=== PATIENT | male | born 1935 | race Caucasian/White ===

== ENCOUNTER 2023-08-03 14:37 | Outpatient (CLI) | payer MEDICARE, SELFPAY ==
[2023-08-03 15:01] LABS: Basophils Absolute Auto 0.1 K/mm3 (0.0-0.1); Basophils Percent Auto 0.5 % (0.2-1.2); Eosinophils Absolute Auto 0.3 K/mm3 (0-0.3); Eosinophils Percent Auto 1.6 % (0-4.4); Hematocrit 40.6 % (42.0-52.0); Hemoglobin 13.9 g/dL (14.0-18.0); Immature Granulocyte Absolute 0.32 K/mm3 (0.00-0.031); Immature Granulocyte Percent A 1.6 % (0-0.5); Lymphocytes Absolute Auto 1.34 K/mm3 (0.9-3.2); Lymphocytes Percent Auto 6.8 % (18.3-44.2); Mean Corpuscular HGB Conc 34.2 g/dl (32-36); Mean Corpuscular Hemoglobin 31.4 pg (26-34); Mean Corpuscular Volume 91.9 fl (80-100); Mean Platelet Volume 9.6 fl (7.4-10.4); Monocytes Absolute Auto 0.9 K/mm3 (0.1-0.6); Monocytes Percent Auto 4.7 % (2.6-8.5); Neutrophils Absolute Auto 16.6 K/mm3 (1.3-6.7); Neutrophils Percent Auto 84.8 % (45.5-73.1); Platelet Count Result 358 k/mm3 (150-375); Red Blood Count 4.42 M/mm3 (4.6-6.20); White Blood Count 19.6 K/mm3 (4.5-10.0)
[2023-08-03 15:59] LABS: Free T4 Free Thyroxine 1.84 ng/mL (0.78-2.19)
[2023-08-03 18:07] LABS: Alanine Aminotransferase 25 U/L (6-50); Albumin Level 3.2 g/dL (3.5-5.1); Alkaline Phosphatase 74 U/L (38-126); Anion Gap 7 mmol/L (4-12); Aspartate Amino Transferase 30 U/L (17-59); Bilirubin,Total 0.6 mg/dL (0.2-1.3); Blood Urea Nitrogen 39 mg/dL (9-20); Calcium 8.4 mg/dL (8.4-10.2); Carbon Dioxide 23 mmol/L (22-30); Chloride 103 mmol/L (98-107); Estimated Glomerular Filt Rate 57; Glucose 119 mg/dL (65-110); Potassium 4.5 mmol/L (3.4-5.0); Sodium 133 mmol/L (137-145)
== END 2023-08-03 14:38 | disposition home or self-care (01) ==
LOC: ANHLAB 14:40
PROVIDERS: PCP Physician Assistant; Visit Provider Internal Medicine
DX: E03.9 Hypothyroidism, unspecified (principal); R53.1 Weakness; I10 Essential (primary) hypertension; R73.9 Hyperglycemia, unspecified
CPT/HCPCS: 36415; 80053; 84439; 84443; 85025

== ENCOUNTER 2023-08-04 14:00 | Outpatient (CLI) | payer MEDICARE, SELFPAY ==
--- NOTE | ~2023-08-04 | XR_ITS ---
EXAMINATION: XR chest 2V DATE: 08/04/2023 14:30 INDICATION: Leukocytosis TECHNIQUE: PA and lateral views of the chest were obtained. COMPARISON: None FINDINGS: Right apical pleural-parenchymal scarring. Left lower lobar airspace opacities suspicious for pneumon ia. No pleural effusion or pneumothorax. The cardiomediastinal silhouette is normal. Moderate osteoar thritis at the bilateral glenoid humeral and acromioclavicular joints. IMPRESSION: 1. Left lower lobe pneumonia. Reviewed, dictated and finalized at location A.
[2023-08-04 15:20] LABS: Appearance Urine Clear (Clear); Bacteria Urine None Seen /hpf; Bilirubin Urine Negative (Negative); Blood Urine Negative (Negative); Color Urine Dark Yellow (Yellow); Glucose Urine UA Negative (Negative); Ketones Urine 1+ mg/dL (Negative); Leukocyte Esterase Ur Negative LEU/UL (Negative); Nitrate Urine Negative (Negative); Protein Urine 1+ mg/dL (Negative); RBC Urine 0-2 /hpf (0-2); Squamous Epithelial Cell Urine None Seen /hpf (Few); WBC Urine 0-5 /hpf (0-3); pH Urine 5.5 (5.0-9.0)
[2023-08-04 15:34] LABS: Specific Grav Ur 1.031 (1.001-1.035)
[2023-08-04 15:35] LABS: Add Urine Microscopic? YES
== END 2023-08-04 14:01 | disposition home or self-care (01) ==
PROVIDERS: PCP Internal Medicine; Visit Provider Internal Medicine
DX: D72.829 Elevated white blood cell count, unspecified (principal); J18.9 Pneumonia, unspecified organism
CPT/HCPCS: 71046; 81001

== ENCOUNTER 2023-08-05 12:08 | Inpatient (IN) | payer MEDICARE, SELFPAY ==
[2023-08-05] VITALS (18 sets, daily range): BP systolic 96–116; BP diastolic 46–67; PULSE 80–93; RESP 16–27; TEMP 36.3–37.1; O2SAT 95–100
--- NOTE | ~2023-08-05 | XR_ITS ---
EXAMINATION: XR chest 1V portable DATE: 08/05/2023 13:03 INDICATION: Left lower lobe pneumonia. TECHNIQUE: A single frontal view of the chest was obtained. COMPARISON: Chest 2 views 08/04/2023 FINDINGS: There are mild airspace opacities in the lower lung zones. No pleural effusion or pneumotho rax. The heart size is normal. IMPRESSION: 1. Stable mild airspace opacities in the lower lung zones, consistent with atelectasis versus pneumon ia. Reviewed, dictated and finalized at location A. IMPRESSION: 1. Stable mild airspace opacities in the lower lung zones, consistent with atel ectasis versus pneumonia.
--- NOTE | ~2023-08-05 | CT_ITS ---
EXAMINATION: CT chest abdomen pelvis w con DATE: 08/09/2023 14:23 INDICATION: Leukocytosis. Sepsis. TECHNIQUE: Computed tomography (CT) of the chest, abdomen, and pelvis was performed with 100 mL Omnip aque 350 intravenous contrast. Automated exposure control and iterative reconstruction technique were employed. The dose-length product was 1191.93 mGy-cm. COMPARISON: None FINDINGS: CHEST CT: The lungs demonstrate mild atelectasis. There are airspace opacities in the dependent lower lobes. Th ere is mild bronchiectasis in the inferior lungs. There is septal thickening in the peripheral lungs. No honeycombing. A calcified left lung nodule and calcified left hilar mediastinal lymph nodes are c onsistent with old granulomatous disease. There are trace right and small left pleural effusions. The heart size is normal. No pericardial effusion.- There are bridging endplate osteophytes at multiple levels in the spine, consistent with diffuse idiopathic skeletal hyperostosis (DISH). ABDOMEN/PELVIS CT: There are cysts in the liver measuring up to 10 mm. Calcifications in the spleen are consistent with old granulomatous disease. The gallbladder is normal in size. The pancreas and adrenal glands are nor mal. There are cysts in the kidneys measuring up to 7 mm on the left. There is calcified atherosclero sis of the aorta and many of the other arteries. Stool distends the rectum. There is diverticulosis o f the colon without evidence of diverticulitis. The appendix is normal. There are no pathologically e nlarged lymph nodes. There is trace pelvic ascites. There is an umbilical hernia containing fat. Ther e is mild lumbar spondylosis. IMPRESSION: 1. Airspace opacities in the dependent lower lobes, consistent with atelectasis versus pneumonia. 2. Mild chronic interstitial lung disease. 3. Small left pleural effusion. Reviewed, dictated and finalized at location A.
--- NOTE | ~2023-08-05 | CT_ITS ---
EXAMINATION: CT brain wo con DATE: 08/07/2023 18:22 INDICATION: Generalized weakness. TECHNIQUE: Computed tomography (CT) of the head was performed without intravenous contrast. The mA wa s adjusted according to patient size. Iterative reconstruction technique was employed. The dose-lengt h product was 605.33 mGy-cm. COMPARISON: None FINDINGS: There is no intracranial hemorrhage, acute infarction, or abnormal intracranial mass lesion . There are scattered areas of low attenuation in the cerebral white matter, which is within normal l imits for the patient's age. The ventricles are normal in size. There is mucosal thickening in the p aranasal sinuses. The mastoid air cells are normal. IMPRESSION: 1. Normal aging brain. Reviewed, dictated and finalized at location E. IMPRESSION: 1. Normal aging brain.
--- NOTE | ~2023-08-05 | XR_ITS ---
MODIFIED ESOPHAGRAM HISTORY: Aspiration TECHNIQUE: Modified barium esophagram was performed on 08/07/2023. I administered fluoroscopy and perf ormed the exam with speech pathologist. Patient was seated for lateral fluoroscopic imaging for roverto stion of thin liquids, pudding, solids and quantified amounts, followed by thin liquids in uncontroll ed amounts. This was recorded on tape. A single fluoroscopic spot image was also recorded. The DAP fo r this procedure was 2.131 Gycm2. The amount of fluoroscopy time used during this procedure was 3.3 m inutes. FINDINGS: Oral stage: Reduced lingual movement with piecemeal deglutination. Pharyngeal stage: There is vallecular and piriform sinus residue. Trace laryngeal penetration without aspiration. Cervical/esophageal stage: Adequate function. IMPRESSION: Mild oropharyngeal dysphagia. Please correlate with speech pathologist findings and spec [facility] feeding recommendations. Reviewed, dictated and finalized at location A. IMPRESSION: Mild oropharyngeal dysphagia. Please correlate with speech patholo gist findings and specific feeding recommendations.
--- NOTE | 2023-08-05 12:29 | ECG_ITS ---
Test Date: 2023-08-05 12:17:43 Measurements Intervals [place] Rate: 92 P: 56 NC: 145 QRS: -8 QRSD: 85 T: 40 QT: 336 QTc: 416 Interpretive Statements SINUS RHYTHM NORMAL ELECTROCARDIOGRAM No previous ECG available for comparison Electronically Signed On 08-05-2023 15:26:23 CDT by Bull Younger M.D.
--- NOTE | 2023-08-05 12:31 | ED.GENADULT ---
HPI - General Adult General Chief complaint: Weakness Stated complaint: weakness, pneumonia Time Seen by Provider: 08/05/23 12:21 Source: patient Mode of arrival: ambulatory Limitations: no limitations History of Present Illness HPI narrative: This is an 88-year-old male with PMH of HTN, hypothyroid who presents to the ED for chief complaint of generalized weakness and fatigue onset times 2-3 weeks. Patient was seen by primary doctor this week and had outpatient labs and x-rays that showed pneumonia of left lower lobe. Patient reports that he is having trouble doing his normal tasks due to his fatigue. He had a fall few days ago and was on the ground for several hours. Patient lives at home. Patient states that he was started on levothyroxine about a week ago and has noticed some difference with that but still feels extremely tired. Denies fevers, chills, cough, shortness of breath, chest pain, abdominal pain, nausea, vomiting, urinary symptoms, back pain. Denies syncope. Patient's son is here and does not feel that the patient is able to take care of himself at home. Son also swellings that family is taking care of patient's who has Alzheimer's. Related Data Home Medications Medication Instructions Recorded Confirmed levothyroxine 50 mcg tablet 50 mcg PO DAILY 08/05/23 08/05/23 Allergies Allergy/AdvReac Type Severity Reaction Status Date / Time No Known Allergies Allergy Mild Verified 08/05/23 16:38 Review of Systems Review of Systems: All systems as dictated in [facility] Past Medical History Medical History Hypothyroidism ?? Family History Family History Other Cerebrovascular accident Family history of rheumatoid arthritis Hypertension Social History Social History Smoking status: Never smoker Second hand tobacco smoke exposure: No Alcohol intake: never Do You Feel Safe in your Home?: No Lack of Transportation: No Lack of Food: Never True Current Housing: I Have Housing Concerned About Future Housing: No Difficulty Paying Gas/Electric Bills: No Difficulty Paying for Meds: No Currently Unemployed: No Education: Master's Degree or Higher Difficulty w/ Childcare or Family Care: No Spiritual care concerns: No Exam Narrative: GENERAL: Well-appearing, well-nourished, and in no acute distress. HEAD: Normocephalic, atraumatic. EYES: PERRLA and EOMI. ENT: Nares clear, no rhinorrhea or epistaxis. Mucous membranes moist. Oropharynx without tonsillar hypertrophy exudate or other lesions. NECK: Supple. No adenopathy or masses. CHEST: No respiratory distress. Crackles in the left lower lobe. Lungs are otherwise clear. 98% room air. HEART: Regular rate and rhythm. No murmur heard. Normal peripheral pulses. ABDOMEN: Soft, nontender, nondistended, normal active bowel sounds. MSK: Normal range of motion. No edema. SKIN: Warm, dry, no rash. NEURO: Alert and oriented x4. No focal deficits. PSYCH: Normal mood and affect. Course Vital Signs Vital signs: Vital Signs Temperature 98.7 F 08/05/23 12:15 Pulse Rate 93 08/05/23 12:15 Respiratory Rate 16 08/05/23 12:15 Blood Pressure 104/61 08/05/23 12:15 Pulse Oximetry 98 08/05/23 12:15 Oxygen Delivery Room Air 08/05/23 12:15 Temperature 97.4 F L 08/05/23 16:15 Pulse Rate 92 08/05/23 16:15 Respiratory Rate 22 H 08/05/23 16:15 Blood Pressure 116/60 08/05/23 16:15 Pulse Oximetry 95 08/05/23 16:15 Oxygen Delivery Room Air 08/05/23 12:15 Medical Decision Making MDM Narrative Medical decision making narrative: This is an 88-year-old male who presents to the ED for chief complaint of weakness and fatigue for the past couple of weeks. Outpatient workup showing elevated white count and lower lobe pneumonia o
[2023-08-05] MEDS: SODIUM CHLORIDE 0.9% IV 1,000 ML 999 ML IV CONT ×2 (12:36→14:02)
[2023-08-05 13:01] LABS: Basophils Absolute Auto 0.1 K/mm3 (0.0-0.1); Basophils Percent Auto 0.6 % (0.2-1.2); Eosinophils Absolute Auto 0.4 K/mm3 (0-0.3); Eosinophils Percent Auto 1.8 % (0-4.4); Hematocrit 36.9 % (42.0-52.0); Hemoglobin 12.9 g/dL (14.0-18.0); Immature Granulocyte Absolute 0.56 K/mm3 (0.00-0.031); Immature Granulocyte Percent A 2.8 % (0-0.5); Lymphocytes Absolute Auto 1.13 K/mm3 (0.9-3.2); Lymphocytes Percent Auto 5.7 % (18.3-44.2); Mean Corpuscular Hemoglobin 31.5 pg (26-34); Monocytes Absolute Auto 0.8 K/mm3 (0.1-0.6); Monocytes Percent Auto 4.2 % (2.6-8.5); Neutrophils Absolute Auto 16.7 K/mm3 (1.3-6.7); Neutrophils Percent Auto 84.9 % (45.5-73.1); Platelet Count Result 340 k/mm3 (150-375); Red Cell Distribution Width 12.7 % (11.5-14.5); White Blood Count 19.7 K/mm3 (4.5-10.0)
[2023-08-05 13:07] LABS: Lactic Acid Reflex 2.5 mmol/L (0.7-2.0)
[2023-08-05 13:14] LABS: Alanine Aminotransferase 22 U/L (6-50); Albumin Level 2.9 g/dL (3.5-5.1); Alkaline Phosphatase 72 U/L (38-126); Anion Gap 8 mmol/L (4-12); Aspartate Amino Transferase 28 U/L (17-59); Bilirubin,Total 0.8 mg/dL (0.2-1.3); Blood Urea Nitrogen 33 mg/dL (9-20); Calcium 7.9 mg/dL (8.4-10.2); Carbon Dioxide 21 mmol/L (22-30); Chloride 96 mmol/L (98-107); Estimated CRCL calculation 53 ml/min; Estimated Glomerular Filt Rate > 60; Glucose 117 mg/dL (65-110); Potassium 4.4 mmol/L (3.4-5.0); Sodium 125 mmol/L (137-145)
[2023-08-05 13:33] LABS: Procalcitonin 0.2 ng/mL
[2023-08-05] MEDS: AZITHROMYCIN 500 MG/NS 250 ML 500 MG/250 ML BAG 250 MG IVPB (14:02)
[2023-08-05 15:54] LABS: Reflex Lactic Acid Yes or No Add Lactic
--- NOTE | 2023-08-05 16:21 | ADMGEN ---
This patient, Alonzo Orta, was admitted to 3 [facility] Surg Room 327-01. Patient/family oriented to hospital policies and general routines including ID bracelet, bed and alarms, visiting hours, pain management, procedures, bathroom and other care routines, personal items, smoking policy, room service/diet, and visiting hours. Information on how to activate the Rapid Response Team has been discussed. Patient/Family are encouraged to report perceived risks to care and to ask questions if they do not understand what they are told or what they should do.
[2023-08-05] MEDS: SODIUM CHLORIDE 0.9% IV 1,000 ML 75 ML IV CONT (18:32)
--- NOTE | 2023-08-05 18:40 | PM.IMHP ---
H&P: HPI History of Present Illness Date/Time: 08/05/23 18:40 Chief Complaint: Dehydration, Pneumonia Narrative: 88 y/o M presents here with dehydration and pneumonia with PMH of hypothyroidism, HTN, skin cancer (s/p excision), and shingles. The patient presents here from home? for further evaluation of dehydration and pneumonia. Patient was seen by his PCP for generalized weakness, fatigue, and decreased appetite. Fatigue and generalized weakness have been ongoing for the past 2-3 weeks and he developed lack of appetite in the past week. CXR on 08/03 showed left lower lobe pneumonia. He was prescribed Augmentin 500-125 x 10 days and a Z-Pierre which was filled today, 08/04. Does not believe he has taken any doses. However due to the severity of the fatigue and interference with his ADLs, he was sent here for further evaluation by his PCP. Also reported fatigue at his PCP visit on 07/29/2023, started on Synthroid 50 mcg daily. Since initiation he reports some improvement but remains fatigued most days. He currently lives at home with his who has Alzheimer's, son at the bedside in the ED reported concerns about patient's ability to take care of himself at home. Patient believes he could continue to stay home if he had home health to help him. Initial VS at presentation: 98.7? F, HR 93, R 16, 104/61, and 98% on RA. ED workup showed: WBC 19.7, hemoglobin 12.9, sodium 125, creatinine 0.9 and normal GFR, CRP 13. CXR done today showed stable miles airspace opacities in the lower lung zones consistent with atelectasis versus pneumonia. Review of Systems Review of Systems: All systems reviewed & are unremarkable except as noted in HPI and below PMFSH Past Medical History Medical History (Updated 08/05/23 @ 23:11 by Yvrose Orosco APRN) Herpes zoster Hx of skin malignancy Hyperlipidemia, unspecified Hypertension Hypothyroidism Low vitamin D level Surgical History Surgical History (Updated 08/05/23 @ 23:04 by Yvrose Orosco APRN) History of rotator cuff surgery Family History Family History Other Cerebrovascular accident Family history of rheumatoid arthritis Hypertension Social History Social History Smoking status: Never smoker Second hand tobacco smoke exposure: No Alcohol intake: never Do You Feel Safe in your Home?: No Lack of Transportation: No Lack of Food: Never True Current Housing: I Have Housing Concerned About Future Housing: No Difficulty Paying Gas/Electric Bills: No Difficulty Paying for Meds: No Currently Unemployed: No Education: Master's Degree or Higher Difficulty w/ Childcare or Family Care: No Spiritual care concerns: No Meds Home Medications and Allergies Home Medications Medication Instructions Recorded Confirmed Type ergocalciferol (vitamin D2) 1,250 See Rx Instructions .Route 03/31/23 08/05/23 Rx mcg (50,000 unit) capsule .COMPLEX #3 caps lisinopril 5 mg tablet 5 mg PO DAILY #90 tabs 07/29/23 08/05/23 Rx amoxicillin 500 mg-potassium 1 tablet PO Q12H #20 tabs 08/05/23 08/05/23 Rx clavulanate 125 mg tablet (Augmentin) azithromycin 250 mg tablet See Rx Instructions PO .COMPLEX #6 08/05/23 08/05/23 Rx (Zithromax Z-Pierre) tabs levothyroxine 50 mcg tablet 50 mcg PO DAILY 08/05/23 08/05/23 History Allergies Allergy/AdvReac Type Severity Reaction Status Date / Time No Known Allergies Allergy Mild Verified 08/05/23 16:38 Vital Signs Vital Signs - 24 hr 08/05/23 12:15 08/05/23 12:18 08/05/23 12:30 Temperature 98.7 F Pulse Rate 93 90 89 Respiratory Rate 16 20 17 Blood Pressure 104/61 104/61 101/67 Pulse Oximetry 98 98 99 Oxygen Delivery Room Air 08/05/23 12:31 08/05/23 12:45 08/05/23 12:46 Temperature Pulse Rate 89 85 83 Respiratory Rate 20 20 19 Blood Pressure 100/60 Pulse Oximetry 99 98 98
[2023-08-05 19:37] LABS: Anion Gap 6 mmol/L (4-12); Blood Urea Nitrogen 29 mg/dL (9-20); Calcium 7.6 mg/dL (8.4-10.2); Carbon Dioxide 23 mmol/L (22-30); Chloride 102 mmol/L (98-107); Estimated CRCL calculation 53 ml/min; Estimated Glomerular Filt Rate > 60; Glucose 90 mg/dL (65-110); Potassium 4.5 mmol/L (3.4-5.0); Sodium 131 mmol/L (137-145)
[2023-08-05] MEDS: ACETAMINOPHEN 325 MG TABLET 650 MG PO (20:55)
--- NOTE | 2023-08-05 22:36 | PC.NURSE ---
I have read and reviewed Nannette Mckeon's charting and agree with her assessments of the pts and her documentation.
[2023-08-05 22:41] LABS: Appearance Urine Clear (Clear); Bacteria Urine None Seen /hpf; Bilirubin Urine Negative (Negative); Blood Urine Negative (Negative); Color Urine Yellow (Yellow); Glucose Urine UA Negative (Negative); Ketones Urine Negative (Negative); Leukocyte Esterase Ur 1+ LEU/UL (Negative); Nitrate Urine Negative (Negative); Non Pathogenic Casts 0-2; Protein Urine Negative (Negative); RBC Urine 0-2 /hpf (0-2); Specific Grav Ur 1.015 (1.001-1.035); Squamous Epithelial Cell Urine None Seen /hpf (Few); WBC Urine 21-50 /hpf (0-3); pH Urine 5.5 (5.0-9.0)
[2023-08-05 22:46] LABS: Creatinine Urine 62.1 mg/dL
[2023-08-05 22:49] LABS: Creatinine Urine 62.7 mg/dL; Total Protein Urine Random 10 mg/dL; Ur Ttl Prot Creatinine Ratio 0.16 mg/mg (0-0.20)
[2023-08-05 22:51] LABS: Sodium Urine Random 74 meq/L
[2023-08-05 23:05] LABS: Add Urine Microscopic? YES
[2023-08-05 23:29] LABS: Anion Gap 2 mmol/L (4-12); Blood Urea Nitrogen 24 mg/dL (9-20); Calcium 7.2 mg/dL (8.4-10.2); Carbon Dioxide 24 mmol/L (22-30); Chloride 103 mmol/L (98-107); Estimated CRCL calculation 53 ml/min; Estimated Glomerular Filt Rate > 60; Glucose 95 mg/dL (65-110); Potassium 3.9 mmol/L (3.4-5.0); Sodium 129 mmol/L (137-145)
[2023-08-06 03:28] LABS: Anion Gap 3 mmol/L (4-12); Blood Urea Nitrogen 22 mg/dL (9-20); Calcium 7.4 mg/dL (8.4-10.2); Carbon Dioxide 24 mmol/L (22-30); Chloride 104 mmol/L (98-107); Estimated CRCL calculation 53 ml/min; Estimated Glomerular Filt Rate > 60; Glucose 91 mg/dL (65-110); Potassium 3.9 mmol/L (3.4-5.0); Sodium 131 mmol/L (137-145)
[2023-08-06] MEDS: LEVOTHYROXINE SODIUM 50 MCG TABLET PO (05:23)
[2023-08-06] MEDS: SODIUM CHLORIDE 0.9% IV 1,000 ML 75 ML IV CONT (05:23)
[2023-08-06 05:55] LABS: Basophils Absolute Auto 0.1 K/mm3 (0.0-0.1); Basophils Percent Auto 0.5 % (0.2-1.2); Eosinophils Absolute Auto 0.7 K/mm3 (0-0.3); Eosinophils Percent Auto 3.5 % (0-4.4); Hematocrit 37.4 % (42.0-52.0); Hemoglobin 12.4 g/dL (14.0-18.0); Immature Granulocyte Absolute 0.36 K/mm3 (0.00-0.031); Immature Granulocyte Percent A 1.9 % (0-0.5); Lymphocytes Absolute Auto 0.95 K/mm3 (0.9-3.2); Lymphocytes Percent Auto 5.1 % (18.3-44.2); Mean Corpuscular HGB Conc 33.2 g/dl (32-36); Mean Corpuscular Hemoglobin 31.1 pg (26-34); Mean Corpuscular Volume 93.7 fl (80-100); Mean Platelet Volume 9.7 fl (7.4-10.4); Monocytes Absolute Auto 0.7 K/mm3 (0.1-0.6); Neutrophils Absolute Auto 15.8 K/mm3 (1.3-6.7); Platelet Count Result 315 k/mm3 (150-375); Red Blood Count 3.99 M/mm3 (4.6-6.20); White Blood Count 18.6 K/mm3 (4.5-10.0)
[2023-08-06 06:00] VITALS: BP 100/59; PULSE 79; RESP 20; TEMP 36.5; O2SAT 97
[2023-08-06 06:04] LABS: Alanine Aminotransferase 18 U/L (6-50); Albumin Level 2.4 g/dL (3.5-5.1); Alkaline Phosphatase 62 U/L (38-126); Anion Gap 5 mmol/L (4-12); Aspartate Amino Transferase 24 U/L (17-59); Bilirubin,Total 0.6 mg/dL (0.2-1.3); Blood Urea Nitrogen 22 mg/dL (9-20); Calcium 7.4 mg/dL (8.4-10.2); Carbon Dioxide 22 mmol/L (22-30); Chloride 103 mmol/L (98-107); Estimated CRCL calculation 59 ml/min; Estimated Glomerular Filt Rate > 60; Glucose 90 mg/dL (65-110); Sodium 130 mmol/L (137-145)
[2023-08-06 08:00] VITALS: PULSE 79; RESP 20; O2SAT 97
--- NOTE | 2023-08-06 10:31 | PM.CNNEP ---
Assessment and Plan Assessment and plan (1) Hyponatremia: Code(s): E87.1 - Hypo-osmolality and hyponatremia Status: Acute Assessment and Plan: The patient has low sodium. He says he has never been told low sodium in the past. Labs from before have not shown a low-sodium except for the 1 2 days before admission at the time of the primary care visit when he had the same illness. He was dehydrated when he came into the emergency room it looks like he still little bit dried now. This could cause low sodium. He has pneumonia can also cause low sodium He had a TSH and a cortisol level both of which were okay. He is not on any medications that would cause the sodium to be low. 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 Will check SPEP, serum and urine osmolality. His sodium did improve from 125-130 with IV fluids. Will change to half normal saline so does not correct so quickly and continue to follow the sodium levels as we hydrate. (2) Pneumonia: Qualifiers: Laterality: bilateral Lung location: lower lobe of lung Pneumonia type: due to unspecified organism Qualified Code(s): J18.9 - Pneumonia, unspecified organism Code(s): J18.9 - Pneumonia, unspecified organism Status: Acute (3) Sepsis: Qualifiers: Sepsis type: sepsis due to unspecified organism Sepsis acute organ dysfunction status: without acute organ dysfunction Qualified Code(s): A41.9 - Sepsis, unspecified organism Code(s): A41.9 - Sepsis, unspecified organism Status: Acute (4) Hypertension: Qualifiers: Hypertension type: primary hypertension Qualified Code(s): I10 - Essential (primary) hypertension Code(s): I10 - Essential (primary) hypertension Status: Acute (5) Hypothyroidism: Code(s): E03.9 - Hypothyroidism, unspecified Status: Acute History of Present Illness Reason for Consult Consult date: 08/06/23 Chief Complaint Chief complaint: Pneumonia,Hyponatremia History of Present Illness Narrative: Alonzo is a very pleasant 88-year-old gentleman who has multiple medical problems including hypothyroidism, hypertension, skin cancer, low vitamin-D level, hyperlipidemia, history of shingles. The patient came in the hospital because of dehydration and pneumonia. His trouble started about 2 or 3 weeks ago when he started becoming generally weak. He had poor appetite as well. He was not eating or drinking very much. He went to see his primary care physician who got a chest x-ray and diagnosed left lower lobe pneumonia and so prescribed him Augmentin plus is Z pack. However things kept getting worse and so came to the ER. In the ER he was found to be dehydrated, he had a sodium of 125, a white count 19.7, and a chest x-ray once again showing infiltrates. He status side sepsis criteria so he received IV fluids for this. He was admitted. He was felt to be dehydrated so he was given normal saline overnight as well. Today he says he still feels weak. He does not have shortness of breath now. But when he exerts he has a little bit. He does not have much of a cough. He has no sputum. No chills or sweats at home and no fevers at home that he knows of. He does not take narcotics. He is on no antidepressants. He is on no PPI and no diuretics. He does have hypertension and takes lisinopril for this. Review of Systems Constitutional: Constitutional: Reports no additional constitutional complaints Eyes: Eyes: Reports no additional eye complaints ENT: Reports system reviewed and no additional complaints, except as documented Cardiovascular: Cardiovascular: Reports no additional cardiovascular complaints Respiratory: Respiratory: Reports no additional respiratory complaints Gastrointestinal: Gastrointestinal: Reports no additional gastrointestinal complaints Genitourinary: Genitourinary: Reports no additional
--- NOTE | 2023-08-06 11:30 | PM.IMPN ---
Progress Note: A&P Assessment and Plan (1) Sepsis: Qualifiers: Sepsis type: sepsis due to unspecified organism Sepsis acute organ dysfunction status: without acute organ dysfunction Qualified Code(s): A41.9 - Sepsis, unspecified organism Code(s): A41.9 - Sepsis, unspecified organism Status: Acute Assessment and Plan: Sepsis present on admission with tachycardia and leukocytosis. He received appropriate amount of IV fluids. PCT 0.2. WBC 19.7K. CRP 13. CXR showing bilateral LL PNA. BCx pending UA noted. UCx pending Suspected source: PNA Started on ceftriaxone and azithromycin on 08/04 WBC better. Continue IV abx. Eating okay so ebenezer stop IV fluids (2) Pneumonia: Qualifiers: Laterality: bilateral Lung location: lower lobe of lung Pneumonia type: due to unspecified organism Qualified Code(s): J18.9 - Pneumonia, unspecified organism Code(s): J18.9 - Pneumonia, unspecified organism Status: Acute Assessment and Plan: CXR 08/04/23 showing left lower lobe PNA CXR on admission (08/04) showing stable mild airspace opacities in the lower lung zones No recent antibiotic use, lives at home Started on treatment for CAP with Azithromycin and ceftriaxone on 08/04 MRSA PCR and legionella (due to current hyponatremia) Sputum culture if obtainable. Speech therapy to see Follow (3) Acute hyponatremia: Code(s): E87.1 - Hypo-osmolality and hyponatremia Status: Acute Assessment and Plan: Na 125 on admission. No prior hx of hyponatremia TSH normal. Cortisol level appropriate. Serial sodium level up to 130 now. (about 5mEq/L in a 18-hour period)? Suspect related to dehydration. Cr normal but BUN 33. Nephrology consulted. Continue Regular diet. BUN trending down with IV fluids. IV fluids per nephrology (4) Hypertension: Qualifiers: Hypertension type: primary hypertension Qualified Code(s): I10 - Essential (primary) hypertension Code(s): I10 - Essential (primary) hypertension Status: Acute Assessment and Plan: Patient's blood pressure was reviewed on 08/05 Blood pressure soft at times He is on Lisinopril 5 mg daily (recently reduced this month) at home. Hold Lisinopril. Plan Diet: Regular DVT Prophylaxis: SCDs Code Status: Full code Disp: PT/OT. Subjective Date/time seen: 08/06/23 11:30 Interval history: 88yo male with hypothyroidism, HTN and shingles here for dehydration and PNA. Complains of mid back pain. No cough. Slept okay. Eating okay. No CP. No SOB. Back pain has been present for about 1 week. He also was recently diagnosed with hypothyroidism and started on synthroid. Exam Narrative: AF 97.7 100/59 79 20 97% ra Gen - NARD lying flat in bed Chest - right base inspiratory crackles. nml RR CV - RRR S1/S2 Abd - Soft, NT/ND, Positive BS Back - mid back spinal and paraspinal tenderness to palpation. No overlying rash or erythema Ext - No pedal edema. normal SLR. Neuro - Alert and oriented x4. Nonfocal exam. Psych - Nml mood and affect Skin - Warm and dry Objective Data Vital Signs Vital Signs: Vital Signs - 24 hr 08/05/23 12:15 08/05/23 12:18 08/05/23 12:30 Temperature 98.7 F Pulse Rate 93 90 89 Respiratory Rate 16 20 17 Blood Pressure 104/61 104/61 101/67 Pulse Oximetry 98 98 99 Oxygen Delivery Room Air 08/05/23 12:31 08/05/23 12:45 08/05/23 12:46 Temperature Pulse Rate 89 85 83 Respiratory Rate 20 20 19 Blood Pressure 100/60 Pulse Oximetry 99 98 98 Oxygen Delivery 08/05/23 13:00 08/05/23 13:15 08/05/23 13:30 Temperature Pulse Rate 83 80 81 Respiratory Rate 20 20 20 Blood Pressure 105/64 111/58 L Pulse Oximetry 99 100 Oxygen Delivery 08/05/23 14:16 08/05/23 14:30 08/05/23 14:31 Temperature Pulse Rate 83 84 83 Respiratory Rate 24 H 27 H 20 Blood Pressure 99/46 L Pulse Oximetry 97 100 100 Oxygen Delivery
[2023-08-06] MEDS: SODIUM CHLORIDE 0.45% 1,000 ML 75 ML IV CONT (11:53)
[2023-08-06 13:12] LABS: Sodium 129 mmol/L (137-145)
[2023-08-06 14:00] VITALS: BP 96/52; PULSE 82; RESP 16; TEMP 36.9; O2SAT 98
[2023-08-06] MEDS: AZITHROMYCIN 500 MG/NS 250 ML 500 MG/250 ML BAG 250 MG IVPB (16:00)
[2023-08-06] MEDS: DESMOPRESSIN ACETATE 4 MCG/ML AMP 2 MCG IV PUSH (18:27)
[2023-08-06] MEDS: DEXTROSE 5% IN WATER 500 ML 250 ML IV CONT (18:33)
[2023-08-06 20:00] VITALS: PULSE 89; RESP 18; O2SAT 98
[2023-08-06 21:26] VITALS: BP 120/51; PULSE 89; RESP 18; TEMP 36.9; O2SAT 98
[2023-08-06 22:08] LABS: Hemoglobin 11.4 g/dL (14.0-18.0); Mean Corpuscular HGB Conc 34.5 g/dl (32-36); Mean Corpuscular Hemoglobin 31.2 pg (26-34); Mean Corpuscular Volume 90.4 fl (80-100); Mean Platelet Volume 9.5 fl (7.4-10.4); Platelet Count Result 282 k/mm3 (150-375); Red Blood Count 3.65 M/mm3 (4.6-6.20); White Blood Count 17.4 K/mm3 (4.5-10.0)
[2023-08-07 05:21] VITALS: BP 127/52; PULSE 94; RESP 18; TEMP 36.9; O2SAT 96
[2023-08-07] MEDS: LEVOTHYROXINE SODIUM 50 MCG TABLET PO (05:56)
[2023-08-07 05:58] LABS: Basophils Absolute Auto 0.1 K/mm3 (0.0-0.1); Basophils Percent Auto 0.5 % (0.2-1.2); Eosinophils Absolute Auto 0.3 K/mm3 (0-0.3); Eosinophils Percent Auto 1.5 % (0-4.4); Hematocrit 35.2 % (42.0-52.0); Immature Granulocyte Absolute 0.52 K/mm3 (0.00-0.031); Immature Granulocyte Percent A 2.4 % (0-0.5); Lymphocytes Absolute Auto 1.09 K/mm3 (0.9-3.2); Lymphocytes Percent Auto 5.1 % (18.3-44.2); Mean Corpuscular HGB Conc 34.1 g/dl (32-36); Mean Platelet Volume 9.8 fl (7.4-10.4); Monocytes Percent Auto 4.4 % (2.6-8.5); Neutrophils Absolute Auto 18.6 K/mm3 (1.3-6.7); Neutrophils Percent Auto 86.1 % (45.5-73.1); Platelet Count Result 291 k/mm3 (150-375); Red Blood Count 3.87 M/mm3 (4.6-6.20); White Blood Count 21.6 K/mm3 (4.5-10.0)
[2023-08-07 06:09] LABS: Anion Gap 3 mmol/L (4-12); Blood Urea Nitrogen 18 mg/dL (9-20); Calcium 7.1 mg/dL (8.4-10.2); Carbon Dioxide 23 mmol/L (22-30); Chloride 101 mmol/L (98-107); Estimated CRCL calculation 59 ml/min; Estimated Glomerular Filt Rate > 60; Glucose 113 mg/dL (65-110); Potassium 4.2 mmol/L (3.4-5.0); Sodium 127 mmol/L (137-145)
[2023-08-07 08:08] VITALS: O2SAT 96
[2023-08-07] MEDS: VANCOMYCIN 1,750 MG/NS 500 ML 1,750 MG/500 ML BAG 250 MG IVPB (09:15)
--- NOTE | 2023-08-07 10:28 | PM.PNNEP ---
Progress Note: A&P Assessment and Plan (1) Hyponatremia: Code(s): E87.1 - Hypo-osmolality and hyponatremia Status: Acute Assessment and Plan: The patient has low sodium. No history of low sodium before this month. TSH and cortisol are okay. Urine and serum osmolality are pending urine specific gravity is 1.015 and on admission was 1.031 Urine sodium 74 blood pressure on admission was somewhat soft. He looked dehydrated on admission as well. Most likely sodium was low due to prerenal factors. the pneumonia may be playing a role as well. I am not sure why the urine sodium was not low, possibly since the pneumonia may be playing a role in his hyponatremia. For this reason will continue fluid restriction. he is not drinking all that much fluid anyway. His sodium Was trending toward correcting fairly quickly so slowed down. Will treat with fluid restriction and a little bit of IV fluids since he is not eating and also there was a question of swallowing issues. (2) Pneumonia: Qualifiers: Laterality: bilateral Lung location: lower lobe of lung Pneumonia type: due to unspecified organism Qualified Code(s): J18.9 - Pneumonia, unspecified organism Code(s): J18.9 - Pneumonia, unspecified organism Status: Acute Assessment and Plan: He is on antibiotics (3) Sepsis: Qualifiers: Sepsis type: sepsis due to unspecified organism Sepsis acute organ dysfunction status: without acute organ dysfunction Qualified Code(s): A41.9 - Sepsis, unspecified organism Code(s): A41.9 - Sepsis, unspecified organism Status: Acute Assessment and Plan: on antibiotics (4) Hypertension: Qualifiers: Hypertension type: primary hypertension Qualified Code(s): I10 - Essential (primary) hypertension Code(s): I10 - Essential (primary) hypertension Status: Acute Assessment and Plan: blood pressure is doing well. His blood pressure meds are on hold right now because it was soft when he came in (5) Hypothyroidism: Code(s): E03.9 - Hypothyroidism, unspecified Status: Acute Assessment and Plan: he is on levothyroxine Subjective Date/time seen: 08/07/23 10:28 Interval history: patient is alert. Some question of swallowing. Is going to get a modified swallowing test today. He says he is very weak still. He asks the nurses to empty his water pitcher half way so that he is able to lift it. He also is too weak rise from a lying to a semi Rubio position. Not eating a whole lot. Review of Systems Cardiovascular: Cardiovascular: Reports no additional cardiovascular complaints Respiratory: Respiratory: Reports no additional respiratory complaints Gastrointestinal: Gastrointestinal: Reports no additional gastrointestinal complaints Genitourinary: Genitourinary: Reports no additional male genitourinary complaints Exam Narrative: WDWN in NAD skin no rash head ncat lungs clear cor reg no rub abd BS+ nontender and soft ext no edema. Objective Data Vital Signs Vital Signs: Vital Signs - 24 hr 08/06/23 14:00 08/06/23 21:26 08/06/23 20:00 Temperature 98.5 F 98.4 F Pulse Rate 82 89 89 Respiratory Rate 16 18 18 Blood Pressure 96/52 L 120/51 L Pulse Oximetry 98 98 98 Oxygen Delivery Room Air 08/07/23 05:21 Temperature 98.4 F Pulse Rate 94 Respiratory Rate 18 Blood Pressure 127/52 L Pulse Oximetry 96 Oxygen Delivery Intake/Output Intake/Output: Intake & Output 08/04/23 08/05/23 08/06/23 08/07/23 23:59 23:59 23:59 23:59 Intake Total 2795 1441.8 218 Output Total 600 1300 250 Balance 2195 141.8 -32 Meds/Results Medications: Active Medications Generic Name Dose Route Start Last Admin Trade Name Freq PRN Reason Stop Dose Admin Acetaminophen 650 mg 08/05/23 14:33 08/05/23 20:55 Acetaminophen 325 Mg Tablet PO 650 mg Q4H PRN
[2023-08-07 11:08] LABS: Protein, Total 4.7 g/dL (6.1-8.1)
[2023-08-07] MEDS: ACETAMINOPHEN 325 MG TABLET 650 MG PO ×3 (11:26→20:48)
[2023-08-07] MEDS: AZITHROMYCIN 500 MG/NS 250 ML 500 MG/250 ML BAG 250 MG IVPB (13:12)
[2023-08-07 14:00] VITALS: BP 102/56; PULSE 97; RESP 14; TEMP 36.7; O2SAT 100
--- NOTE | 2023-08-07 14:01 | PM.IMPN ---
Progress Note: A&P Assessment and Plan (1) Sepsis: Qualifiers: Sepsis acute organ dysfunction status: without acute organ dysfunction Sepsis type: sepsis due to unspecified organism Qualified Code(s): A41.9 - Sepsis, unspecified organism Code(s): A41.9 - Sepsis, unspecified organism Status: Acute Assessment and Plan: Sepsis present on admission with tachycardia and leukocytosis. He received appropriate amount of IV fluids. PCT 0.2. WBC 19.7K. CRP 13. CXR showing bilateral LL PNA. BCx NGTD UA noted. UCx negative Suspected source: PNA Started on ceftriaxone and azithromycin on 08/04 WBC worse today. Continue IV abx. Add Vanco. Check MRSA nasal swab. He has been having taste disturbance so will check COVID PCR Consider changing to Unasyn if MBS is concerning. (2) Pneumonia: Qualifiers: Laterality: bilateral Lung location: lower lobe of lung Pneumonia type: due to unspecified organism Qualified Code(s): J18.9 - Pneumonia, unspecified organism Code(s): J18.9 - Pneumonia, unspecified organism Status: Acute Assessment and Plan: CXR 08/04/23 showing left lower lobe PNA CXR on admission (08/04) showing stable mild airspace opacities in the lower lung zones No recent antibiotic use, lives at home Started on treatment for CAP with Azithromycin and ceftriaxone on 08/04 MRSA PCR and legionella (due to current hyponatremia) pending Sputum culture if obtainable. Speech therapy following As above. Follow (3) Acute hyponatremia: Code(s): E87.1 - Hypo-osmolality and hyponatremia Status: Acute Assessment and Plan: Na 125 on admission. No prior hx of hyponatremia TSH normal. Cortisol level appropriate. he had been recently started on levothyroxine. Serial sodium level up to 130 but back down to 127 Suspect related to dehydration. Cr normal but BUN was 33. Nephrology consulted. Continue Regular diet. BUN trending down with IV fluids. IV fluids per nephrology (4) Hypertension: Qualifiers: Hypertension type: primary hypertension Qualified Code(s): I10 - Essential (primary) hypertension Code(s): I10 - Essential (primary) hypertension Status: Acute Assessment and Plan: Patient's blood pressure was reviewed on 08/06 Blood pressure soft at times He is on Lisinopril 5 mg daily at home (recently reduced this month) Holding Lisinopril. (5) Weakness: Code(s): R53.1 - Weakness Status: Acute Assessment and Plan: Patient is diffusely weak with possibly mild LUE focal weakness. Increase activity. PT/OT ordered Will check CT brain to exclude occult CVA Plan DVT Prophylaxis: lovenox Code Status: Full code Disp: PT/OT. Subjective Date/time seen: 08/07/23 14:01 Interval history: 88yo male with hypothyroidism, HTN and shingles here for dehydration and PNA. Slept off and on last night. No CP or SOB. Complains of right upper arm pain and bilateral thigh pain. He fell a few days prior to admission per family in the room. He has been losing weight about 16# over the past 6 months. No melana or hematochezia. Last colonoscopy was 20+ years ago. Exam Narrative: AF 98.4 127/52 94 18 96% ra Gen - NARD lying flat in bed Chest - R>L basilar inspiratory crackles. nml RR CV - RRR S1/S2 Abd - Soft, NT/ND, Positive BS Ext - No pedal edema. bilateral thigh pain. ROM to all joints okay. minimal right arm pain to palpation Neuro - Alert and oriented x4. mild LUE biceps weakness Psych - Nml mood and affect Skin - Warm and dry Objective Data Vital Signs Vital Signs: Vital Signs - 24 hr 08/06/23 21:26 08/06/23 20:00 08/07/23 05:21 Temperature 98.4 F 98.4 F Pulse Rate 89 89 94 Respiratory Rate 18 18 18 Blood Pressure 120/51 L 127/52 L Pulse Oximetry 98 98 96 Oxygen Delivery Room Air Intake/Output Intake/Output: Intake & Output 08/04/23 08/05/23 08/06/23
[2023-08-07 14:51] LABS: MRSA (PCR) NOT DETECTED (NOT DETECTE)
--- NOTE | 2023-08-07 14:54 | PCSTNOTE ---
Modified barium swallow study completed. Trials of thin, moderately thick, pureed, mixed, and solid consistency were given in varying amounts and manners of presentation. No aspiration or penetration observed. However, reduced lingual movement with piecemeal deglutination was present, as was vallecular and pyriform sinus residue. Recommendations: soft and bite sized diet (level 6), regular thin liquids (level 0), speech therapy to address swallowing. Swallowing precaution recommendations placed in chart. Thank you for this referral.
[2023-08-07] MEDS: ENOXAPARIN 40 MG/0.4 ML SYRINGE SUB-Q (15:54)
[2023-08-07] MEDS: SODIUM CHLORIDE 0.9% IV 1,000 ML 50 ML IV CONT (15:55)
[2023-08-07] MEDS: metroNIDAZOLE 500 MG TABLET PO (20:49)
[2023-08-07] MEDS: BENZONATATE 100 MG CAPSULE PO (20:49)
[2023-08-07 20:57] VITALS: BP 110/51; PULSE 77; RESP 16; TEMP 36.7; O2SAT 99
[2023-08-08] MEDS: metroNIDAZOLE 500 MG TABLET PO (05:07)
[2023-08-08] MEDS: LEVOTHYROXINE SODIUM 50 MCG TABLET PO (05:07)
[2023-08-08 05:41] VITALS: BP 132/62; PULSE 85; RESP 16; TEMP 36.9; O2SAT 99
[2023-08-08 06:05] LABS: Basophils Absolute Auto 0.1 K/mm3 (0.0-0.1); Basophils Percent Auto 0.6 % (0.2-1.2); Eosinophils Absolute Auto 0.9 K/mm3 (0-0.3); Eosinophils Percent Auto 4.5 % (0-4.4); Hematocrit 37.1 % (42.0-52.0); Hemoglobin 12.5 g/dL (14.0-18.0); Immature Granulocyte Absolute 0.49 K/mm3 (0.00-0.031); Immature Granulocyte Percent A 2.5 % (0-0.5); Lymphocytes Absolute Auto 0.85 K/mm3 (0.9-3.2); Lymphocytes Percent Auto 4.3 % (18.3-44.2); Mean Corpuscular HGB Conc 33.7 g/dl (32-36); Mean Corpuscular Hemoglobin 30.7 pg (26-34); Mean Corpuscular Volume 91.2 fl (80-100); Mean Platelet Volume 9.6 fl (7.4-10.4); Monocytes Absolute Auto 0.7 K/mm3 (0.1-0.6); Monocytes Percent Auto 3.4 % (2.6-8.5); Neutrophils Absolute Auto 16.8 K/mm3 (1.3-6.7); Neutrophils Percent Auto 84.7 % (45.5-73.1); Platelet Count Result 291 k/mm3 (150-375); Red Blood Count 4.07 M/mm3 (4.6-6.20); Red Cell Distribution Width 12.9 % (11.5-14.5); White Blood Count 19.8 K/mm3 (4.5-10.0)
[2023-08-08 06:36] LABS: Albumin Level 2.1 g/dL (3.5-5.1); Anion Gap 3 mmol/L (4-12); Blood Urea Nitrogen 15 mg/dL (9-20); Calcium 7.1 mg/dL (8.4-10.2); Carbon Dioxide 23 mmol/L (22-30); Chloride 100 mmol/L (98-107); Estimated CRCL calculation 67 ml/min; Estimated Glomerular Filt Rate > 60; Glucose 125 mg/dL (65-110); Lactate Dehydrogenase 108 U/L (120-246); Magnesium 1.7 mg/dL (1.6-2.3); Phosphorus 2.5 mg/dL (2.5-4.5); Potassium 3.9 mmol/L (3.4-5.0); Sodium 126 mmol/L (137-145)
[2023-08-08 07:10] LABS: Influenza A QL RT-PCR Negative (Negative); Influenza B QL RT-PCR Negative (Negative); RSV RNA, RT-PCR Negative (Negative); SARS-CoV-2 RNA PCR Negative (Negative)
[2023-08-08 08:00] LABS: Creatine Kinase 36 U/L (55-170)
--- NOTE | 2023-08-08 08:33 | PM.PNNEP ---
Progress Note: A&P Assessment and Plan (1) Hyponatremia: Code(s): E87.1 - Hypo-osmolality and hyponatremia Status: Acute Assessment and Plan: The patient has low sodium. No history of low sodium before this month. TSH and cortisol are okay. Urine and serum osmolality are pending urine specific gravity is 1.015 and on admission was 1.031 Urine sodium 74 blood pressure on admission was somewhat soft. He looked dehydrated on admission as well. his blood pressure is doing well today Most likely sodium was low due to prerenal factors Plus pneumonia. He is on fluid restriction and a little bit of IV fluids since he is not eating very well. Sodium level dropped a little bit to 126. he has a little bit of presacral edema. Will try some Lasix along with the fluids to see if the sodium level rises. Will switch to oral sodium chloride tablets if he starts eating better (2) Pneumonia: Qualifiers: Laterality: bilateral Lung location: lower lobe of lung Pneumonia type: due to unspecified organism Qualified Code(s): J18.9 - Pneumonia, unspecified organism Code(s): J18.9 - Pneumonia, unspecified organism Status: Acute Assessment and Plan: He is on antibiotics (3) Sepsis: Qualifiers: Sepsis type: sepsis due to unspecified organism Sepsis acute organ dysfunction status: without acute organ dysfunction Qualified Code(s): A41.9 - Sepsis, unspecified organism Code(s): A41.9 - Sepsis, unspecified organism Status: Acute Assessment and Plan: on antibiotics (4) Hypertension: Qualifiers: Hypertension type: primary hypertension Qualified Code(s): I10 - Essential (primary) hypertension Code(s): I10 - Essential (primary) hypertension Status: Acute Assessment and Plan: blood pressure is doing well. His blood pressure meds are on hold right now because it was soft when he came in (5) Hypothyroidism: Code(s): E03.9 - Hypothyroidism, unspecified Status: Acute Assessment and Plan: he is on levothyroxine Subjective Date/time seen: 08/08/23 08:33 Interval history: patient is alert. He feels okay. No chest pain or shortness of breath eating a little bit. Exam Narrative: WDWN in NAD skin no rash Or subcu nodules head ncat lungs clear bilateral cor reg no rub abd BS+ nontender and soft ext trace bilateral pre sacral edema or cyanosis. Objective Data Vital Signs Vital Signs: Vital Signs - 24 hr 08/07/23 14:02 08/07/23 14:00 08/07/23 20:57 Temperature 98.0 F 98.0 F Pulse Rate 97 77 Respiratory Rate 14 16 Blood Pressure 102/56 L 110/51 L Pulse Oximetry 100 99 Oxygen Delivery Room Air 08/08/23 05:41 Temperature 98.4 F Pulse Rate 85 Respiratory Rate 16 Blood Pressure 132/62 Pulse Oximetry 99 Oxygen Delivery Intake/Output Intake/Output: Intake & Output 08/05/23 08/06/23 08/07/23 08/08/23 23:59 23:59 23:59 23:59 Intake Total 2795 1741.8 1108 Output Total 600 1300 725 450 Balance 2195 441.8 383 -450 Meds/Results Medications: Active Medications Generic Name Dose Route Start Last Admin Trade Name Freq PRN Reason Stop Dose Admin Acetaminophen 650 mg 08/05/23 14:33 08/07/23 20:48 Acetaminophen 325 Mg Tablet PO 650 mg Q4H PRN Administration Mild Pain (1-3) or Fever Albuterol/Ipratropium 3 ml 08/05/23 19:01 Ipratropium 0.5 Mg/Albuterol Sulfate 2.5 Mg Ampul.Neb 3 Ml INHALATION Q6HRT PRN Shortness Of Breath Or Wheezing Benzonatate 100 mg 08/05/23 19:01 08/07/23 20:49 Benzonatate 100 Mg Capsule PO 100 mg TID PRN Administration Cough Doxycycline Hyclate 100 mg 08/08/23 09:00 Doxycycline Hyclate 100 Mg Tablet PO 08/11/23 21:01 Q12HR JOSE Enoxaparin Sodium 40 mg 08/08/23 09:00 Enoxaparin 40 Mg/0.4 Ml Syringe SUB-Q DAILY JOSE Sodium Chloride 1,000 mls
[2023-08-08] MEDS: DOXYCYCLINE HYCLATE 100 MG TABLET PO ×2 (08:41→20:37)
[2023-08-08] MEDS: ENOXAPARIN 40 MG/0.4 ML SYRINGE SUB-Q (08:42)
[2023-08-08] MEDS: FUROSEMIDE 20 MG TABLET PO ×2 (08:43→17:05)
[2023-08-08] MEDS: AMPICILLIN SULB 3 GM/NS 100 ML 3 GM/100 ML VIAL IVPB ×4 (08:53→23:47)
--- NOTE | 2023-08-08 11:32 | PCSTNOTE ---
The patient treatment was not able to be completed on 08/07 due to first complaining about upset stomach, fear of vomiting, and then fell to sleep within minutes of therapist entering room and slept throughout therapist conversation with son, 10-15 minutes. Will plan to continue treatment per plan of care.
--- NOTE | 2023-08-08 11:34 | PM.IMPN ---
Progress Note: A&P Assessment and Plan (1) Sepsis: Qualifiers: Sepsis acute organ dysfunction status: without acute organ dysfunction Sepsis type: sepsis due to unspecified organism Qualified Code(s): A41.9 - Sepsis, unspecified organism Code(s): A41.9 - Sepsis, unspecified organism Status: Acute Assessment and Plan: Sepsis present on admission with tachycardia and leukocytosis. He received appropriate amount of IV fluids. PCT 0.2. WBC 19.7K. CRP 13. CXR showing bilateral LL PNA. BCx NGTD UA noted. UCx negative Suspected source: PNA Started on ceftriaxone and azithromycin on 08/04 WBC worse so Vanco added. Flagyl added for possible aspiration. MRSA nasal swab negative. COVID/Influenza/RSV PCR negative MBS/ST recommended Level 6 diet. WBC better. Change to Unasyn and Doxy. Follow WBC (2) Pneumonia: Qualifiers: Laterality: bilateral Lung location: lower lobe of lung Pneumonia type: due to unspecified organism Qualified Code(s): J18.9 - Pneumonia, unspecified organism Code(s): J18.9 - Pneumonia, unspecified organism Status: Acute Assessment and Plan: CXR 08/04/23 showing right base scarring and left lower lobe PNA CXR on admission (08/04) showing stable mild airspace opacities in the lower lung zones No recent antibiotic use, lives at home Started on treatment for CAP with Azithromycin and ceftriaxone on 08/04 MRSA PCR negative. Viral PCR negative. Legionella pending Sputum culture if obtainable. Speech therapy following As above. Follow (3) Acute hyponatremia: Code(s): E87.1 - Hypo-osmolality and hyponatremia Status: Acute Assessment and Plan: Na 125 on admission. No prior hx of hyponatremia TSH normal. Cortisol level appropriate. he had been recently started on levothyroxine. Serial sodium level was up to 130 but back down to 126 today Suspect related to dehydration. Cr normal but BUN was 33 on admission. Nephrology consulted. Continue Regular diet. BUN trending down with IV fluids. IV fluids per nephrology. Fluid restrictions started 08/06 Lasix started today. (4) Hypertension: Qualifiers: Hypertension type: primary hypertension Qualified Code(s): I10 - Essential (primary) hypertension Code(s): I10 - Essential (primary) hypertension Status: Acute Assessment and Plan: Patient's blood pressure was reviewed on 08/07 Blood pressure more stable now He was on Lisinopril 5 mg daily at home (recently reduced this month) but now stopped. Follow (5) Weakness: Code(s): R53.1 - Weakness Status: Acute Assessment and Plan: Patient is diffusely weak with possibly mild LUE focal weakness. Brain CT showing no acute findings. Consider autoimmune process. TCK normal. Increase activity. PT/OT Add supplements. Plan DVT Prophylaxis: lovenox Code Status: Full code Disp: PT/OT. Subjective Date/time seen: 08/08/23 11:34 Interval history: 88yo male with hypothyroidism, HTN and shingles here for dehydration and PNA. Patient was up to the chair yesterday. He still has a poor appetite. The odd/metalic taste in his mouth is improved. Denies cough. Denies nausea and vomiting. Exam Narrative: AF 98.4 132/62 85 16 99% ra Gen - NARD Chest - R basilar inspiratory crackles. nml RR CV - RRR S1/S2 Abd - Soft, NT/ND, Positive BS Ext - No pedal edema. Psych - Nml mood and affect Skin - Warm and dry Objective Data Vital Signs Vital Signs: Vital Signs - 24 hr 08/07/23 14:02 08/07/23 14:00 08/07/23 20:57 Temperature 98.0 F 98.0 F Pulse Rate 97 77 Respiratory Rate 14 16 Blood Pressure 102/56 L 110/51 L Pulse Oximetry 100 99 Oxygen Delivery Room Air 08/08/23 05:41 08/08/23 08:00 08/08/23 09:35 Temperature 98.4 F Pulse Rate 85 Respiratory Rate 16 Blood Pressure 132/62 Pulse Oximetry 99 Oxygen Delivery Room Air Room Air
[2023-08-08 13:18] LABS: Sodium 127 mmol/L (137-145)
[2023-08-08 14:00] VITALS: BP 102/50; PULSE 81; RESP 20; TEMP 36.1; O2SAT 99
[2023-08-08 14:46] VITALS: BMI 21.5
[2023-08-08] MEDS: SODIUM CHLORIDE 0.9% IV 1,000 ML 50 ML IV CONT (15:04)
[2023-08-08 15:28] LABS: Albumin 1.7 g/dL (3.8-4.8); Alpha 1 Globulin 0.5 g/dL (0.2-0.3); Alpha 2 Globulin 0.9 g/dL (0.5-0.9); Beta 1 Globulin 0.3 g/dL (0.4-0.6)
[2023-08-08] MEDS: ONDANSETRON INJ 4 MG/2 ML VIAL IV PUSH (17:07)
[2023-08-08 20:00] VITALS: PULSE 82; RESP 20; O2SAT 97
[2023-08-08 20:25] VITALS: BP 105/58; PULSE 82; RESP 20; TEMP 36.1; O2SAT 97
[2023-08-09 02:34] LABS: Legionella pneumophila Ag Ur NOT DETECTED
[2023-08-09 05:00] VITALS: BP 112/71; PULSE 85; RESP 20; TEMP 36.2; O2SAT 94
[2023-08-09] MEDS: LEVOTHYROXINE SODIUM 50 MCG TABLET PO (05:34)
[2023-08-09] MEDS: AMPICILLIN SULB 3 GM/NS 100 ML 3 GM/100 ML VIAL IVPB (05:34)
[2023-08-09 05:41] LABS: Basophils Absolute Auto 0.2 K/mm3 (0.0-0.1); Basophils Percent Auto 0.8 % (0.2-1.2); Eosinophils Absolute Auto 0.5 K/mm3 (0-0.3); Eosinophils Percent Auto 2.3 % (0-4.4); Hematocrit 34.9 % (42.0-52.0); Hemoglobin 11.5 g/dL (14.0-18.0); Immature Granulocyte Absolute 0.62 K/mm3 (0.00-0.031); Lymphocytes Absolute Auto 1.01 K/mm3 (0.9-3.2); Lymphocytes Percent Auto 4.8 % (18.3-44.2); Mean Corpuscular Hemoglobin 30.8 pg (26-34); Mean Corpuscular Volume 93.6 fl (80-100); Mean Platelet Volume 9.7 fl (7.4-10.4); Monocytes Absolute Auto 0.8 K/mm3 (0.1-0.6); Neutrophils Absolute Auto 17.8 K/mm3 (1.3-6.7); Neutrophils Percent Auto 85.1 % (45.5-73.1); Platelet Count Result 329 k/mm3 (150-375); Red Blood Count 3.73 M/mm3 (4.6-6.20); Red Cell Distribution Width 13.2 % (11.5-14.5)
[2023-08-09 05:56] LABS: Albumin Level 2.1 g/dL (3.5-5.1); Anion Gap 5 mmol/L (4-12); Blood Urea Nitrogen 18 mg/dL (9-20); Calcium 7.1 mg/dL (8.4-10.2); Carbon Dioxide 22 mmol/L (22-30); Chloride 101 mmol/L (98-107); Estimated CRCL calculation 59 ml/min; Estimated Glomerular Filt Rate > 60; Glucose 94 mg/dL (65-110); Magnesium 1.9 mg/dL (1.6-2.3); Phosphorus 2.9 mg/dL (2.5-4.5); Potassium 3.5 mmol/L (3.4-5.0); Sodium 128 mmol/L (137-145)
[2023-08-09 06:06] LABS: Anisocytosis 1+; Burr Cells 1+; Platelet Estimate Adequate (Adequate); Schistocytes None Seen
--- NOTE | 2023-08-09 07:59 | PM.PNNEP ---
Progress Note: A&P Assessment and Plan (1) Hyponatremia: Code(s): E87.1 - Hypo-osmolality and hyponatremia Status: Acute Assessment and Plan: The patient has low sodium. No history of low sodium before this month. TSH and cortisol are okay. Urine and serum osmolality are pending urine specific gravity is 1.015 and on admission was 1.031 Urine sodium 74 blood pressure on admission was somewhat soft. He looked dehydrated on admission as well. his blood pressure is doing well today Most likely sodium was low due to prerenal factors plus pneumonia. He is on fluid restriction and a little bit of IV fluids since he is not eating very well. Sodium level matty to 128 today. Volume status looks okay. Still eating sparingly. Will continue IV fluids and low-dose furosemide to bring the sodium up. I discussed with the nurse. If he starts eating well she will call and I will switch to salt tablets instead of saline. (2) Pneumonia: Qualifiers: Laterality: bilateral Lung location: lower lobe of lung Pneumonia type: due to unspecified organism Qualified Code(s): J18.9 - Pneumonia, unspecified organism Code(s): J18.9 - Pneumonia, unspecified organism Status: Acute Assessment and Plan: He is on antibiotics (3) Sepsis: Qualifiers: Sepsis acute organ dysfunction status: without acute organ dysfunction Sepsis type: sepsis due to unspecified organism Qualified Code(s): A41.9 - Sepsis, unspecified organism Code(s): A41.9 - Sepsis, unspecified organism Status: Acute Assessment and Plan: on antibiotics (4) Hypertension: Qualifiers: Hypertension type: primary hypertension Qualified Code(s): I10 - Essential (primary) hypertension Code(s): I10 - Essential (primary) hypertension Status: Acute Assessment and Plan: Blood pressure readings are under good control (5) Hypothyroidism: Code(s): E03.9 - Hypothyroidism, unspecified Status: Acute Assessment and Plan: he is on levothyroxine Subjective Date/time seen: 08/09/23 07:59 Interval history: patient is feeling okay today. No chest pain or shortness of breath eating sparingly. Exam Narrative: WDWN in NAD skin no rash Or subcu nodules head ncat lungs clear to auscultation cor reg no rub abd BS+ nontender and soft ext trace bilateral pre sacral edema or cyanosis. Objective Data Vital Signs Vital Signs: Vital Signs - 24 hr 08/08/23 08:00 08/08/23 09:35 08/08/23 14:00 Temperature 97.0 F L Pulse Rate 81 Respiratory Rate 20 Blood Pressure 102/50 L Pulse Oximetry 99 Oxygen Delivery Room Air Room Air 08/08/23 20:25 08/08/23 20:00 08/09/23 05:00 Temperature 97 F L 97.1 F L Pulse Rate 82 82 85 Respiratory Rate 20 20 20 Blood Pressure 105/58 L 112/71 Pulse Oximetry 97 97 94 Oxygen Delivery Room Air Intake/Output Intake/Output: Intake & Output 08/06/23 08/07/23 08/08/23 08/09/23 23:59 23:59 23:59 23:59 Intake Total 1741.8 1108 1470 200 Output Total 6334 230 4700 500 Balance 441.8 383 370 -300 Meds/Results Medications: Active Medications Generic Name Dose Route Start Last Admin Trade Name Freq PRN Reason Stop Dose Admin Acetaminophen 650 mg 08/05/23 14:33 08/07/23 20:48 Acetaminophen 325 Mg Tablet PO 650 mg Q4H PRN Administration Mild Pain (1-3) or Fever Albuterol/Ipratropium 3 ml 08/05/23 19:01 Ipratropium 0.5 Mg/Albuterol Sulfate 2.5 Mg Ampul.Neb 3 Ml INHALATION Q6HRT PRN Shortness Of Breath Or Wheezing Doxycycline Hyclate 100 mg 08/08/23 09:00 08/08/23 20:37 Doxycycline Hyclate 100 Mg Tablet PO 08/11/23 21:01 100 mg Q12HR JOSE Administration Enoxaparin Sodium 40 mg 08/08/23 09:00 08/08/23 08:42 Enoxaparin 40 Mg/0.4 Ml Syringe SUB-Q 40 mg DAILY JOSE Administration Furosemide 20 mg 08/08/23 09:
[2023-08-09] MEDS: FUROSEMIDE 20 MG TABLET PO ×2 (09:02→16:38)
[2023-08-09] MEDS: DOXYCYCLINE HYCLATE 100 MG TABLET PO ×2 (09:02→20:28)
[2023-08-09] MEDS: ENOXAPARIN 40 MG/0.4 ML SYRINGE SUB-Q (09:05)
[2023-08-09] MEDS: MEROPENEM 1 GM/NS 100 ML 1 GM/100 ML BAG IVPB ×3 (09:06→20:28)
[2023-08-09 13:59] VITALS: BP 114/50; PULSE 94; RESP 20; TEMP 36.3; O2SAT 95
--- NOTE | 2023-08-09 16:39 | PM.IMPN ---
Progress Note: A&P Assessment and Plan (1) Sepsis: Qualifiers: Sepsis type: sepsis due to unspecified organism Sepsis acute organ dysfunction status: without acute organ dysfunction Qualified Code(s): A41.9 - Sepsis, unspecified organism Code(s): A41.9 - Sepsis, unspecified organism Status: Acute Assessment and Plan: Sepsis present on admission with tachycardia and leukocytosis. He received appropriate amount of IV fluids. PCT 0.2. WBC 19.7K. CRP 13. CXR showing bilateral LL PNA. BCx NGTD UA noted. UCx negative Suspected source: PNA Started on ceftriaxone and azithromycin on 08/04 WBC worse so Vanco added. Flagyl added for possible aspiration. MRSA nasal swab negative. COVID/Influenza/RSV PCR negative MBS/ST recommended Level 6 diet. WBC was better and abx adjusted but WBC worse today. Had MRSA, atypical and anaerobic coverage as well as routine coverage CT chest/abd/pelvis showing airspace opacities in the dependent lower lobes, left pleural effusion and mild ILD o/w no acute findings. SARAH negative. Continue Doxy and change to meropenem. Follow WBC (2) Pneumonia: Qualifiers: Laterality: bilateral Lung location: lower lobe of lung Pneumonia type: due to unspecified organism Qualified Code(s): J18.9 - Pneumonia, unspecified organism Code(s): J18.9 - Pneumonia, unspecified organism Status: Acute Assessment and Plan: CXR 08/04/23 showing right base scarring and left lower lobe PNA CXR on admission (08/04) showing stable mild airspace opacities in the lower lung zones No recent antibiotic use, lives at home Started on treatment for CAP with Azithromycin and ceftriaxone on 08/04 MRSA PCR negative. Viral PCR negative. Legionella pending CT Chest showing airspace opacities in the dependent lower lobes, left pleural effusion and mild ILD Sputum culture if obtainable. Speech therapy following Abx as above. Follow (3) Acute hyponatremia: Code(s): E87.1 - Hypo-osmolality and hyponatremia Status: Acute Assessment and Plan: Na 125 on admission. No prior hx of hyponatremia TSH normal. Cortisol level appropriate. he had been recently started on levothyroxine. Serial sodium level was up to 130 but back down to mid-high 120's Suspect related to dehydration. Cr normal but BUN was 33 on admission. Nephrology consulted. BUN trending down with IV fluids. IV fluids per nephrology. Fluid restriction. Lasix started Appreciate nephrology input (4) Hypertension: Qualifiers: Hypertension type: primary hypertension Qualified Code(s): I10 - Essential (primary) hypertension Code(s): I10 - Essential (primary) hypertension Status: Acute Assessment and Plan: Patient's blood pressure was reviewed on 08/08 Blood pressure more stable now He was on Lisinopril 5 mg daily at home (recently reduced this month) but now stopped. Follow (5) Weakness: Code(s): R53.1 - Weakness Status: Acute Assessment and Plan: Patient is diffusely weak with possibly mild LUE focal weakness. Brain CT showing no acute findings. Consider autoimmune process but SARAH negative. TCK normal. Supplements added. Increase activity. PT/OT Plan DVT Prophylaxis: lovenox Code Status: Full code Disp: PT/OT. SNF recommended. Subjective Date/time seen: 08/09/23 16:39 Interval history: 88yo male with hypothyroidism, HTN and shingles here for dehydration and PNA. Patient with nausea. No longer having taste disturbance. No CP or SOB. No cough. No abd pain. No BM recently Exam Narrative: AF 97.3 114/50 94 20 95% ra Gen - NARD Chest - bibasilar inspiratory crackles. nml RR CV - RRR S1/S2 Abd - Soft, NT/ND, Positive BS Ext - No pedal edema. neuro -diffusely weak Psych - Nml mood and affect Skin - Warm and dry Objective Data Vital Signs Vital Signs: Vital Signs - 24 hr 08/08/23 20:25 08/08/23 20:00
[2023-08-09 20:25] VITALS: BP 134/68; PULSE 98; RESP 24; TEMP 35.8; O2SAT 95
[2023-08-09 20:49] LABS: Appearance Urine Clear (Clear); Bilirubin Urine Negative (Negative); Blood Urine Negative (Negative); Color Urine Yellow (Yellow); Glucose Urine UA Negative (Negative); Ketones Urine Negative (Negative); Leukocyte Esterase Ur Negative LEU/UL (Negative); Nitrate Urine Negative (Negative); Protein Urine Negative (Negative); Specific Grav Ur 1.024 (1.001-1.035); Urobilinogen Urine 0.2 mg/dL (<2.0)
[2023-08-09 20:53] LABS: Add Urine Microscopic? NO
[2023-08-09] MEDS: ONDANSETRON INJ 4 MG/2 ML VIAL IV PUSH (20:58)
[2023-08-10 04:25] VITALS: BP 115/55; PULSE 84; RESP 20; TEMP 35.9; O2SAT 97
[2023-08-10 05:16] LABS: Basophils Absolute Auto 0.2 K/mm3 (0.0-0.1); Basophils Percent Auto 0.6 % (0.2-1.2); Eosinophils Absolute Auto 0.2 K/mm3 (0-0.3); Eosinophils Percent Auto 0.9 % (0-4.4); Hemoglobin 11.8 g/dL (14.0-18.0); Lymphocytes Absolute Auto 1.28 K/mm3 (0.9-3.2); Lymphocytes Percent Auto 5.4 % (18.3-44.2); Mean Corpuscular HGB Conc 33.7 g/dl (32-36); Mean Corpuscular Hemoglobin 31.2 pg (26-34); Mean Corpuscular Volume 92.6 fl (80-100); Mean Platelet Volume 9.7 fl (7.4-10.4); Monocytes Absolute Auto 1.2 K/mm3 (0.1-0.6); Monocytes Percent Auto 5.1 % (2.6-8.5); Platelet Count Result 336 k/mm3 (150-375); Red Blood Count 3.78 M/mm3 (4.6-6.20); Red Cell Distribution Width 13.3 % (11.5-14.5); White Blood Count 23.5 K/mm3 (4.5-10.0)
[2023-08-10 05:37] LABS: Anisocytosis 1+; Platelet Estimate Adequate (Adequate)
[2023-08-10 05:38] LABS: Burr Cells 1+; Ovalocytes 1+; Schistocytes None Seen
[2023-08-10 05:40] LABS: Anion Gap 3 mmol/L (4-12); Blood Urea Nitrogen 29 mg/dL (9-20); Calcium 7.1 mg/dL (8.4-10.2); Carbon Dioxide 25 mmol/L (22-30); Chloride 100 mmol/L (98-107); Estimated CRCL calculation 48 ml/min; Estimated Glomerular Filt Rate > 60; Glucose 126 mg/dL (65-110); Potassium 3.8 mmol/L (3.4-5.0); Sodium 128 mmol/L (137-145)
[2023-08-10] MEDS: MEROPENEM 1 GM/NS 100 ML 1 GM/100 ML BAG IVPB ×3 (05:42→21:16)
[2023-08-10] MEDS: LEVOTHYROXINE SODIUM 50 MCG TABLET PO (05:42)
[2023-08-10 05:51] LABS: CRP 13.8 mg/dL (<1.0)
[2023-08-10] MEDS: ENOXAPARIN 40 MG/0.4 ML SYRINGE SUB-Q (08:27)
[2023-08-10] MEDS: DOXYCYCLINE HYCLATE 100 MG TABLET PO ×2 (08:27→21:20)
[2023-08-10] MEDS: FUROSEMIDE 20 MG TABLET PO (08:27)
--- NOTE | 2023-08-10 11:35 | PCOTNOTE ---
Attempted to see at this time. Patient unavailable at this time, will try back this afternoon.
--- NOTE | 2023-08-10 12:35 | P.PNNP_ITS ---
Progress Note: A&P Assessment and Plan (1) Hyponatremia: Code(s): E87.1 - Hypo-osmolality and hyponatremia Status: Acute Assessment and Plan: * better if not stable * seems acute as normal sodium noted in February of this year * risk factors for low sodium: * interstitial lung disease * pneumonia * pre-renal factors * thyroid disease * history of skin cancer * evaluation to date: * TSH okay * cortisol good * serum osmolality 280; urine pending * urine lytes non-prerenal * suspect etiology due to prerenal issues + pneumonia * on fluid restriction, low dose lasix and gentle IVFs * given ongoing poor oral intake, consider backing off on fluid restriction and diuretics * if sodium drops with this intervention, will likely have to resume fluid restriction and diuretic therapy * follow trend of sodium level (2) Pneumonia: Qualifiers: Laterality: bilateral Lung location: lower lobe of lung Pneumonia type: due to unspecified organism Qualified Code(s): J18.9 - Pneumonia, unspecified organism Code(s): J18.9 - Pneumonia, unspecified organism Status: Acute Assessment and Plan: * based on admission imaging * follow culture data * on antibiotics (3) Hypertension: Qualifiers: Hypertension type: primary hypertension Qualified Code(s): I10 - Essential (primary) hypertension Code(s): I10 - Essential (primary) hypertension Status: Chronic Assessment and Plan: * reasonable control at this time * follow trend of hemodynamics (4) Weakness: Code(s): R53.1 - Weakness Status: Acute Assessment and Plan: * present since admission * Brain CT without any acute issues * PT/OT as tolerated Will continue to follow. Subjective Date/time seen: 08/10/23 12:35 Interval history: Follow-up for hyponatremia. Chart reviewed -- assuming care from Dr. Lopez; sodium holding stable for the last several days at 128mmol/L with current interventions/therapy (fluid restri ction + lasix + normal saline IVFs); still seems quite weak and per nursing, has not been eating very much either; no apparent distress voiced at the time of my visit. Exam Narrative: General: elderly and frail appearing male in NAD Heart: normal S1 and S2; no rub Lungs: clear to auscultation Abdomen: soft, nontender, nondistended, positive bowel sounds Extremities: no cyanosis or clubbing; trace edema Skin: warm and dry Objective Data Vital Signs Vital Signs: Vital Signs Temp Pulse Resp BP Pulse Ox 08/10/23 12:00 97.3 F L 93 20 114/55 L 98 08/10/23 04:25 96.7 F L 84 20 115/55 L 97 08/09/23 20:25 96.5 F L 98 24 H 134/68 95 Intake/Output Intake/Output: Intake & Output 08/07/23 08/08/23 08/09/23 08/10/23 23:59 23:59 23:59 23:59 Intake Total 1108 1470 1980 656 Output Total 725 1100 850 950 Balance 014 757 4804 294 Meds/Results Medications: Active Medications Generic Name Dose Route Start Last Admin Trade Name Ervinq PRN Reason Stop Dose Admin Acetaminophen 650 mg 08/05/23 14:33 08/07/23 20:48 Acetaminophen 325 Mg Tablet PO 650 mg Q
--- NOTE | 2023-08-10 12:35 | PM.PNNEP ---
Progress Note: A&P Assessment and Plan (1) Hyponatremia: Code(s): E87.1 - Hypo-osmolality and hyponatremia Status: Acute Assessment and Plan: better if not stable seems acute as normal sodium noted in February of this year risk factors for low sodium: interstitial lung disease pneumonia pre-renal factors thyroid disease history of skin cancer evaluation to date: TSH okay cortisol good serum osmolality 280; urine pending urine lytes non-prerenal suspect etiology due to prerenal issues + pneumonia on fluid restriction, low dose lasix and gentle IVFs given ongoing poor oral intake, consider backing off on fluid restriction and diuretics if sodium drops with this intervention, will likely have to resume fluid restriction and diuretic therapy follow trend of sodium level (2) Pneumonia: Qualifiers: Laterality: bilateral Lung location: lower lobe of lung Pneumonia type: due to unspecified organism Qualified Code(s): J18.9 - Pneumonia, unspecified organism Code(s): J18.9 - Pneumonia, unspecified organism Status: Acute Assessment and Plan: based on admission imaging follow culture data on antibiotics (3) Hypertension: Qualifiers: Hypertension type: primary hypertension Qualified Code(s): I10 - Essential (primary) hypertension Code(s): I10 - Essential (primary) hypertension Status: Chronic Assessment and Plan: reasonable control at this time follow trend of hemodynamics (4) Weakness: Code(s): R53.1 - Weakness Status: Acute Assessment and Plan: present since admission Brain CT without any acute issues PT/OT as tolerated Will continue to follow. Subjective Date/time seen: 08/10/23 12:35 Interval history: Follow-up for hyponatremia. Chart reviewed -- assuming care from Dr. Lopez; sodium holding stable for the last several days at 128mmol/L with current interventions/therapy (fluid restriction + lasix + normal saline IVFs); still seems quite weak and per nursing, has not been eating very much either; no apparent distress voiced at the time of my visit. Exam Narrative: General: elderly and frail appearing male in NAD Heart: normal S1 and S2; no rub Lungs: clear to auscultation Abdomen: soft, nontender, nondistended, positive bowel sounds Extremities: no cyanosis or clubbing; trace edema Skin: warm and dry Objective Data Vital Signs Vital Signs: Vital Signs Temp Pulse Resp BP Pulse Ox 08/10/23 12:00 97.3 F L 93 20 114/55 L 98 08/10/23 04:25 96.7 F L 84 20 115/55 L 97 08/09/23 20:25 96.5 F L 98 24 H 134/68 95 Intake/Output Intake/Output: Intake & Output 08/07/23 08/08/23 08/09/23 08/10/23 23:59 23:59 23:59 23:59 Intake Total 1108 1470 1980 656 Output Total 725 1100 850 950 Balance 819 438 2747 -294 Meds/Results Medications: Active Medications Generic Name Dose Route Start Last Admin Trade Name Freq PRN Reason Stop Dose Admin Acetaminophen 650 mg 08/05/23 14:33 08/07/23 20:48 Acetaminophen 325 Mg Tablet PO 650 mg Q4H PRN Administration Mild Pain (1-3) or Fever Albuterol/Ipratropium 3 ml 08/05/23 19:01 Ipratropium 0.5 Mg/Albuterol Sulfate 2.5 Mg Ampul.Neb 3 Ml INHALATION Q6HRT PRN Shortness Of Breath Or Wheezing Doxycycline Hyclate 100 mg 08/08/23 09:00 08/10/23 08:27 Doxycycline Hyclate 100 Mg Tablet PO 08/11/23 21:01 100 mg Q12HR JOSE Administration Enoxaparin Sodium 40 mg 08/08/23 09:00 08/10/23 08:27 Enoxaparin 40 Mg/0.4 Ml Syringe SUB-Q 40 mg DAILY JOSE Administration Furosemide 20 mg 08/08/23 09:00 08/10/23 08:27 Furosemide 20 Mg Tablet PO 20 mg BID JOSE Administration Sodium Chloride 1,000 mls @ 150 mls/hr 08/07/23 10:35 08/10/23 13:41 Normal Saline Iv IV CONT 50 mls/hr .Q6H40M JOSE Administration Meropenem 1 gm in 100
[2023-08-10] MEDS: SODIUM CHLORIDE 0.9% IV 1,000 ML 50 ML IV CONT (13:41)
--- NOTE | 2023-08-10 13:50 | PCOTNOTE ---
Attempted again to come back this afternoon for Patient's OT treatment session. Patient soundly sleeping, Patient's son does not want him interrupted this afternoon. Patients son stated he has an increase in infection so he needs rest right now, check back tomorrow.
[2023-08-10 14:00] VITALS: BP 114/55; PULSE 93; RESP 20; TEMP 36.3; O2SAT 98
--- NOTE | 2023-08-10 14:47 | PCPTNOTE ---
Patient's family spoke to OT this afternoon and requested to hold therapies this afternoon due and resume tomorrow when patient is feeling better. PT will continue to follow per plan of care.
--- NOTE | 2023-08-10 16:07 | PM.IMPN ---
Progress Note: A&P Assessment and Plan (1) Sepsis: Qualifiers: Sepsis type: sepsis due to unspecified organism Sepsis acute organ dysfunction status: without acute organ dysfunction Qualified Code(s): A41.9 - Sepsis, unspecified organism Code(s): A41.9 - Sepsis, unspecified organism Status: Acute Assessment and Plan: Sepsis present on admission with tachycardia and leukocytosis. He received appropriate amount of IV fluids. PCT 0.2. WBC 19.7K. CRP 13. CXR showing bilateral LL PNA. BCx NGTD UA noted. UCx negative Suspected source: PNA Started on ceftriaxone and azithromycin on 08/04 WBC worse so Vanco added. Flagyl added for possible aspiration. MRSA nasal swab negative. COVID/Influenza/RSV PCR negative MBS/ST recommended Level 6 diet. WBC was better and abx adjusted but WBC worse today. Had MRSA, atypical and anaerobic coverage as well as routine coverage CT chest/abd/pelvis showing airspace opacities in the dependent lower lobes, left pleural effusion and mild ILD o/w no acute findings. SARAH negative. Continue Doxy and change to meropenem. Follow WBC assuming care on 08/09: WBC count again elevated to 23 with left shift. Procalcitonin in the morning. Call out being made to Infectious Disease consultation at tertiary care centers. Currently on meropenem and doxycycline. Adding vancomycin. Repeat blood cultures ordered. No fever, cough, shortness of breath. No abdominal pain no diarrhea no open wounds, no dental abscess. (2) Pneumonia: Qualifiers: Laterality: bilateral Lung location: lower lobe of lung Pneumonia type: due to unspecified organism Qualified Code(s): J18.9 - Pneumonia, unspecified organism Code(s): J18.9 - Pneumonia, unspecified organism Status: Acute Assessment and Plan: CXR 08/04/23 showing right base scarring and left lower lobe PNA CXR on admission (08/04) showing stable mild airspace opacities in the lower lung zones No recent antibiotic use, lives at home Started on treatment for CAP with Azithromycin and ceftriaxone on 08/04 MRSA PCR negative. Viral PCR negative. Legionella pending CT Chest showing airspace opacities in the dependent lower lobes, left pleural effusion and mild ILD Sputum culture if obtainable. Speech therapy following Abx as above. Follow assuming care on 08/09: Repeat CT chest abdomen pelvis with airspace opacities dependent in lower lobes consistent with atelectasis versus pneumonia. No cavitations identified. Chronic interstitial lung disease. Small left pleural effusion. Legionella antigen not detected. Quad viral screen negative. Check pneumococcal antigen and mycoplasma IgM (3) Acute hyponatremia: Code(s): E87.1 - Hypo-osmolality and hyponatremia Status: Acute Assessment and Plan: Na 125 on admission. No prior hx of hyponatremia TSH normal. Cortisol level appropriate. he had been recently started on levothyroxine. Serial sodium level was up to 130 but back down to mid-high 120's Suspect related to dehydration. Cr normal but BUN was 33 on admission. Nephrology consulted. BUN trending down with IV fluids. IV fluids per nephrology. Fluid restriction. Lasix started Appreciate nephrology input assuming care on 08/09: Patient appears very dry. On 08/07 his sodium was 126 and he was placed on salt infusion with Lasix and fluid restriction 1500 cc per day. He appears very dry and this may be contributing to his weakness. Discussion held with Dr. Workman, will temporarily lift fluid restriction, Lasix, increase normal saline infusion no 150 cc/hour. It is possible he was still volume down and that was contributing to his hyponatremia. BUN creatinine ratio elevated today as well. Check repeat BMP at 10:00 p.m. liset. (4) Hypertension: Qualifiers: Hypertension type: primary hypertension Qualified Code(s): I10 - Essential (primary) hypertension Code(s): I10 - Shana
[2023-08-10] MEDS: VANCOMYCIN 1,750 MG/NS 500 ML 1,750 MG/500 ML BAG 250 MG IVPB (17:24)
[2023-08-10 20:45] VITALS: BP 114/50; PULSE 94; RESP 16; TEMP 36.6; O2SAT 94
[2023-08-10 22:42] LABS: Anion Gap 3 mmol/L (4-12); Blood Urea Nitrogen 32 mg/dL (9-20); Calcium 6.9 mg/dL (8.4-10.2); Carbon Dioxide 25 mmol/L (22-30); Chloride 101 mmol/L (98-107); Estimated CRCL calculation 59 ml/min; Estimated Glomerular Filt Rate > 60; Glucose 117 mg/dL (65-110); Potassium 3.7 mmol/L (3.4-5.0); Sodium 129 mmol/L (137-145)
[2023-08-11] MEDS: SODIUM CHLORIDE 0.9% IV 1,000 ML 150 ML IV CONT ×2 (02:54→19:45)
[2023-08-11] MEDS: LEVOTHYROXINE SODIUM 50 MCG TABLET PO (05:08)
[2023-08-11] MEDS: MEROPENEM 1 GM/NS 100 ML 1 GM/100 ML BAG IVPB ×3 (05:08→20:51)
[2023-08-11 05:22] LABS: Basophils Absolute Auto 0.2 K/mm3 (0.0-0.1); Basophils Percent Auto 0.6 % (0.2-1.2); Eosinophils Absolute Auto 0.3 K/mm3 (0-0.3); Hematocrit 34.7 % (42.0-52.0); Hemoglobin 11.7 g/dL (14.0-18.0); Immature Granulocyte Absolute 0.72 K/mm3 (0.00-0.031); Immature Granulocyte Percent A 2.7 % (0-0.5); Lymphocytes Absolute Auto 1.22 K/mm3 (0.9-3.2); Lymphocytes Percent Auto 4.5 % (18.3-44.2); Mean Corpuscular HGB Conc 33.7 g/dl (32-36); Mean Corpuscular Hemoglobin 31.1 pg (26-34); Mean Corpuscular Volume 92.3 fl (80-100); Mean Platelet Volume 9.5 fl (7.4-10.4); Monocytes Absolute Auto 1.3 K/mm3 (0.1-0.6); Monocytes Percent Auto 4.6 % (2.6-8.5); Neutrophils Absolute Auto 23.5 K/mm3 (1.3-6.7); Neutrophils Percent Auto 86.6 % (45.5-73.1); Platelet Count Result 313 k/mm3 (150-375); Red Blood Count 3.76 M/mm3 (4.6-6.20); Red Cell Distribution Width 13.2 % (11.5-14.5); White Blood Count 27.1 K/mm3 (4.5-10.0)
[2023-08-11 05:44] LABS: Anisocytosis 1+; Burr Cells 1+; Ovalocytes 1+; Platelet Estimate Adequate (Adequate); Schistocytes None Seen
[2023-08-11 05:47] LABS: Alanine Aminotransferase 28 U/L (6-50); Alkaline Phosphatase 74 U/L (38-126); Anion Gap -1 mmol/L (4-12); Aspartate Amino Transferase 50 U/L (17-59); Bilirubin,Total 0.4 mg/dL (0.2-1.3); Blood Urea Nitrogen 29 mg/dL (9-20); Calcium 6.8 mg/dL (8.4-10.2); Carbon Dioxide 28 mmol/L (22-30); Chloride 103 mmol/L (98-107); Estimated CRCL calculation 59 ml/min; Estimated Glomerular Filt Rate > 60; Glucose 112 mg/dL (65-110); Magnesium 1.8 mg/dL (1.6-2.3); Potassium 3.9 mmol/L (3.4-5.0); Sodium 130 mmol/L (137-145)
[2023-08-11 06:00] VITALS: BP 109/53; PULSE 90; RESP 16; TEMP 36.1; O2SAT 93
[2023-08-11 06:03] LABS: Procalcitonin 0.3 ng/mL
[2023-08-11] MEDS: ENOXAPARIN 40 MG/0.4 ML SYRINGE SUB-Q (07:58)
[2023-08-11] MEDS: DOXYCYCLINE HYCLATE 100 MG TABLET PO ×2 (07:59→20:41)
[2023-08-11] MEDS: MICAFUNGIN SODIUM 100 MG in SODIUM CHLORIDE 0.9% IV 100 ML IVPB (10:13)
--- NOTE | 2023-08-11 10:31 | PCOTNOTE ---
Per RN, Patient is not appropriate for therapy services. Patient is planning on being transferred to [facility] for higher level of care.
--- NOTE | 2023-08-11 13:34 | P.PNNP_ITS ---
Progress Note: A&P Assessment and Plan (1) Hyponatremia: Code(s): E87.1 - Hypo-osmolality and hyponatremia Status: Acute Assessment and Plan: * better if not stable * seems acute as normal sodium noted in February of this year * risk factors for low sodium: * interstitial lung disease * pneumonia * pre-renal factors * thyroid disease * history of skin cancer * evaluation to date: * TSH okay * cortisol good * serum osmolality 280; urine pending * urine lytes non-prerenal * suspect etiology due to prerenal issues + pneumonia * was on fluid restriction, low dose lasix and gentle IVFs * given ongoing poor oral intake, backed off on fluid restriction + diuretics and given more aggressive IVFs * if sodium drops again with this intervention, will likely have to resume fluid restriction and diuretic therapy * follow trend of sodium level (2) Pneumonia: Qualifiers: Laterality: bilateral Lung location: lower lobe of lung Pneumonia type: due to unspecified organism Qualified Code(s): J18.9 - Pneumonia, unspecified organism Code(s): J18.9 - Pneumonia, unspecified organism Status: Acute Assessment and Plan: * based on admission imaging * follow culture data * on antibiotics (3) Hypertension: Qualifiers: Hypertension type: primary hypertension Qualified Code(s): I10 - Es sential (primary) hypertension Code(s): I10 - Essential (primary) hypertension Status: Chronic Assessment and Plan: * reasonable control at this time * follow trend of hemodynamics (4) Weakness: Code(s): R53.1 - Weakness Status: Acute Assessment and Plan: * present since admission * Brain CT without any acute issues * PT/OT as tolerated Will continue to follow. Subjective Date/time seen: 08/11/23 13:34 Interval history: Follow-up for hyponatremia. Sodium improved following more aggressive IVF resuscitation and holding off of diuretics and fluid restriction; major complaint remains that of significant weakness; WBC continue to climb despite current medication therapy; no apparent distress noted. Exam Narrative: General: elderly and frail appearing male in NAD Heart: normal S1 and S2; no rub Lungs: clear to auscultation Abdomen: soft, nontender, nondistended, positive bowel sounds Extremities: no cyanosis or clubbing; trace edema Skin: warm and intact Objective Data Vital Signs Vital Signs: Vital Signs Temp Pulse Resp BP Pulse Ox O2 Del Method 08/11/23 13:00 96.8 F L 104 H 14 99/55 L 91 08/11/23 08:00 Room Air 08/11/23 06:00 96.9 F L 90 16 109/53 L 93 08/10/23 20:45 97.8 F 94 16 114/50 L 94 Intake/Output Intake/Output: Intake & Output 08/08/23 08/09/23 08/10/23 08/11/23 23:59 23:59 23:59 23:59 Intake Total 1470 1980 1856.0 340 Output Total 1100 850 950 350 Balance 370 1130 906.0 -10 Meds/Results Medications: Active Medications Generic Name Dose Route Start Last Admin Trade Name Freq PRN Reason Stop Dose Admin Acetaminophen 650 mg 08/05/23 14:33 08/07/23 20:48 Acetaminophen 325 Mg Tablet PO 650
--- NOTE | 2023-08-11 13:34 | PM.PNNEP ---
Progress Note: A&P Assessment and Plan (1) Hyponatremia: Code(s): E87.1 - Hypo-osmolality and hyponatremia Status: Acute Assessment and Plan: better if not stable seems acute as normal sodium noted in February of this year risk factors for low sodium: interstitial lung disease pneumonia pre-renal factors thyroid disease history of skin cancer evaluation to date: TSH okay cortisol good serum osmolality 280; urine pending urine lytes non-prerenal suspect etiology due to prerenal issues + pneumonia was on fluid restriction, low dose lasix and gentle IVFs given ongoing poor oral intake, backed off on fluid restriction + diuretics and given more aggressive IVFs if sodium drops again with this intervention, will likely have to resume fluid restriction and diuretic therapy follow trend of sodium level (2) Pneumonia: Qualifiers: Laterality: bilateral Lung location: lower lobe of lung Pneumonia type: due to unspecified organism Qualified Code(s): J18.9 - Pneumonia, unspecified organism Code(s): J18.9 - Pneumonia, unspecified organism Status: Acute Assessment and Plan: based on admission imaging follow culture data on antibiotics (3) Hypertension: Qualifiers: Hypertension type: primary hypertension Qualified Code(s): I10 - Essential (primary) hypertension Code(s): I10 - Essential (primary) hypertension Status: Chronic Assessment and Plan: reasonable control at this time follow trend of hemodynamics (4) Weakness: Code(s): R53.1 - Weakness Status: Acute Assessment and Plan: present since admission Brain CT without any acute issues PT/OT as tolerated Will continue to follow. Subjective Date/time seen: 08/11/23 13:34 Interval history: Follow-up for hyponatremia. Sodium improved following more aggressive IVF resuscitation and holding off of diuretics and fluid restriction; major complaint remains that of significant weakness; WBC continue to climb despite current medication therapy; no apparent distress noted. Exam Narrative: General: elderly and frail appearing male in NAD Heart: normal S1 and S2; no rub Lungs: clear to auscultation Abdomen: soft, nontender, nondistended, positive bowel sounds Extremities: no cyanosis or clubbing; trace edema Skin: warm and intact Objective Data Vital Signs Vital Signs: Vital Signs Temp Pulse Resp BP Pulse Ox O2 Del Method 08/11/23 13:00 96.8 F L 104 H 14 99/55 L 91 08/11/23 08:00 Room Air 08/11/23 06:00 96.9 F L 90 16 109/53 L 93 08/10/23 20:45 97.8 F 94 16 114/50 L 94 Intake/Output Intake/Output: Intake & Output 08/08/23 08/09/23 08/10/23 08/11/23 23:59 23:59 23:59 23:59 Intake Total 1470 1980 1856.0 340 Output Total 1100 850 950 350 Balance 370 1130 906.0 -10 Meds/Results Medications: Active Medications Generic Name Dose Route Start Last Admin Trade Name Freq PRN Reason Stop Dose Admin Acetaminophen 650 mg 08/05/23 14:33 08/07/23 20:48 Acetaminophen 325 Mg Tablet PO 650 mg Q4H PRN Administration Mild Pain (1-3) or Fever Albuterol/Ipratropium 3 ml 08/05/23 19:01 Ipratropium 0.5 Mg/Albuterol Sulfate 2.5 Mg Ampul.Neb 3 Ml INHALATION Q6HRT PRN Shortness Of Breath Or Wheezing Doxycycline Hyclate 100 mg 08/08/23 09:00 08/11/23 07:59 Doxycycline Hyclate 100 Mg Tablet PO 08/11/23 21:01 100 mg Q12HR JOSE Administration Enoxaparin Sodium 40 mg 08/08/23 09:00 08/11/23 07:58 Enoxaparin 40 Mg/0.4 Ml Syringe SUB-Q 40 mg DAILY JOSE Administration Furosemide 20 mg 08/08/23 09:00 08/10/23 08:27 Furosemide 20 Mg Tablet PO 20 mg BID JOSE Administration Sodium Chloride 1,000 mls @ 150 mls/hr 08/07/23 10:35 08/11/23 02:54 Normal Saline Iv IV CONT 150 mls/hr .Q6H40M JOSE Administration Meropenem 1
[2023-08-11 14:00] VITALS: BP 99/55; PULSE 104; RESP 14; TEMP 36; O2SAT 91
--- NOTE | 2023-08-11 15:47 | PCPTNOTE ---
The patient treatment was not able to be completed today due to RN reporting patient not medically appropriate to participate in therapy today. Plan for patient to transfer to [facility].
--- NOTE | 2023-08-11 17:19 | PM.IMPN ---
Progress Note: A&P Assessment and Plan (1) Sepsis: Qualifiers: Sepsis acute organ dysfunction status: without acute organ dysfunction Sepsis type: sepsis due to unspecified organism Qualified Code(s): A41.9 - Sepsis, unspecified organism Code(s): A41.9 - Sepsis, unspecified organism Status: Acute Assessment and Plan: Sepsis present on admission with tachycardia and leukocytosis. He received appropriate amount of IV fluids. PCT 0.2. WBC 19.7K. CRP 13. CXR showing bilateral LL PNA. BCx NGTD UA noted. UCx negative Suspected source: PNA Started on ceftriaxone and azithromycin on 08/04 WBC worse so Vanco added. Flagyl added for possible aspiration. MRSA nasal swab negative. COVID/Influenza/RSV PCR negative MBS/ST recommended Level 6 diet. WBC was better and abx adjusted but WBC worse today. Had MRSA, atypical and anaerobic coverage as well as routine coverage CT chest/abd/pelvis showing airspace opacities in the dependent lower lobes, left pleural effusion and mild ILD o/w no acute findings. SARAH negative. Continue Doxy and change to meropenem. Follow WBC assuming care on 08/09: WBC count again elevated to 23 with left shift. Procalcitonin in the morning. Call out being made to Infectious Disease consultation at tertiary care centers. Currently on meropenem and doxycycline. Adding vancomycin. Repeat blood cultures ordered. No fever, cough, shortness of breath. No abdominal pain no diarrhea no open wounds, no dental abscess. White count up to 27. Interestingly procalcitonin is 0.3. CBC with diff has not revealed blast cells nucleated RBCs or promyelocytes. legionella antigen negative. Mycoplasma and pneumococcal antigen pending. SARAH screen negative. Patient continues to be afebrile and hemodynamically stable until 1400 today with a blood pressure 99/55 and heart rate 104. Asked nursing team to repeat vitals and if they are similar or worsen this then will begin more aggressive fluid resuscitation for sepsis with hypotension/shock. Lengthy discussion held with son and daughter and the patient on multiple occasions and they are amenable to transfer. Dr. Sepulveda hospitalist at [facility] agreed to accept the patient for ID consultation. Currently awaiting a bed. Unfortunately unable to place this patient on High prior the list. Attempt to call other tertiary care centers to get him accepted as well. Yesterday added vancomycin and repeat blood cultures. White count elevated again. Blood cultures obviously still pending. He still has no other signs/symptoms for other infectious etiologies. Discussed risks versus benefits of anti fungal and family decided to start micafungin. Therefore currently, on doxycycline meropenem vancomycin and micafungin. (2) Pneumonia: Qualifiers: Laterality: bilateral Lung location: lower lobe of lung Pneumonia type: due to unspecified organism Qualified Code(s): J18.9 - Pneumonia, unspecified organism Code(s): J18.9 - Pneumonia, unspecified organism Status: Acute Assessment and Plan: CXR 08/04/23 showing right base scarring and left lower lobe PNA CXR on admission (08/04) showing stable mild airspace opacities in the lower lung zones No recent antibiotic use, lives at home Started on treatment for CAP with Azithromycin and ceftriaxone on 08/04 MRSA PCR negative. Viral PCR negative. Legionella pending CT Chest showing airspace opacities in the dependent lower lobes, left pleural effusion and mild ILD Sputum culture if obtainable. Speech therapy following Abx as above. Follow assuming care on 08/09: Repeat CT chest abdomen pelvis with airspace opacities dependent in lower lobes consistent with atelectasis versus pneumonia. No cavitations identified. Chronic interstitial lung disease. Small left pleural effusion. Legionella antigen not detected. Quad viral screen negative. Check pneumococcal antigen and mycoplasma IgM (3) Acute hyponatremia:
[2023-08-11 17:24] VITALS: BP 110/60; PULSE 90; RESP 20; TEMP 37.3; O2SAT 95
[2023-08-11] MEDS: VANCOMYCIN 1,250 MG/NS 250 ML 1,250 MG/250 ML BAG 166.67 MG IVPB (17:28)
[2023-08-11 20:05] VITALS: BP 120/54; PULSE 86; RESP 16; TEMP 37.2; O2SAT 93
[2023-08-11 20:41] VITALS: TEMP 37.3
[2023-08-11] MEDS: ACETAMINOPHEN 325 MG TABLET 650 MG PO (20:41)
[2023-08-11 21:15] LABS: Basophils Absolute Auto 0.1 K/mm3 (0.0-0.1); Basophils Percent Auto 0.5 % (0.2-1.2); Eosinophils Absolute Auto 0.4 K/mm3 (0-0.3); Eosinophils Percent Auto 1.5 % (0-4.4); Hematocrit 34.1 % (42.0-52.0); Hemoglobin 11.3 g/dL (14.0-18.0); Immature Granulocyte Percent A 2.3 % (0-0.5); Lymphocytes Absolute Auto 1.04 K/mm3 (0.9-3.2); Mean Corpuscular HGB Conc 33.1 g/dl (32-36); Mean Corpuscular Hemoglobin 31.2 pg (26-34); Mean Corpuscular Volume 94.2 fl (80-100); Mean Platelet Volume 9.4 fl (7.4-10.4); Monocytes Absolute Auto 1.1 K/mm3 (0.1-0.6); Monocytes Percent Auto 4.2 % (2.6-8.5); Neutrophils Absolute Auto 22.9 K/mm3 (1.3-6.7); Neutrophils Percent Auto 87.5 % (45.5-73.1); Platelet Count Result 303 k/mm3 (150-375); Red Blood Count 3.62 M/mm3 (4.6-6.20); Red Cell Distribution Width 13.4 % (11.5-14.5); White Blood Count 26.1 K/mm3 (4.5-10.0)
[2023-08-12 05:10] VITALS: BP 126/59; PULSE 80; RESP 18; TEMP 36.4; O2SAT 93
[2023-08-12] MEDS: MEROPENEM 1 GM/NS 100 ML 1 GM/100 ML BAG IVPB ×2 (05:47→14:22)
[2023-08-12] MEDS: LEVOTHYROXINE SODIUM 50 MCG TABLET PO (05:47)
[2023-08-12 08:46] LABS: Alanine Aminotransferase 34 U/L (6-50); Albumin Level 1.9 g/dL (3.5-5.1); Alkaline Phosphatase 66 U/L (38-126); Anion Gap 3 mmol/L (4-12); Aspartate Amino Transferase 59 U/L (17-59); Bilirubin,Total 0.6 mg/dL (0.2-1.3); Blood Urea Nitrogen 24 mg/dL (9-20); Calcium 6.9 mg/dL (8.4-10.2); Carbon Dioxide 23 mmol/L (22-30); Chloride 102 mmol/L (98-107); Estimated CRCL calculation 77 ml/min; Estimated Glomerular Filt Rate > 60; Glucose 90 mg/dL (65-110); Magnesium 1.8 mg/dL (1.6-2.3); Phosphorus 2.4 mg/dL (2.5-4.5); Potassium 4.2 mmol/L (3.4-5.0); Sodium 128 mmol/L (137-145)
[2023-08-12 08:53] LABS: Basophils Absolute Auto 0.1 K/mm3 (0.0-0.1); Basophils Percent Auto 0.4 % (0.2-1.2); Eosinophils Absolute Auto 0.8 K/mm3 (0-0.3); Eosinophils Percent Auto 3.1 % (0-4.4); Hematocrit 33.4 % (42.0-52.0); Hemoglobin 11.3 g/dL (14.0-18.0); Immature Granulocyte Absolute 0.55 K/mm3 (0.00-0.031); Lymphocytes Absolute Auto 1.05 K/mm3 (0.9-3.2); Lymphocytes Percent Auto 3.9 % (18.3-44.2); Mean Corpuscular HGB Conc 33.8 g/dl (32-36); Mean Corpuscular Hemoglobin 31.2 pg (26-34); Mean Corpuscular Volume 92.3 fl (80-100); Mean Platelet Volume 9.6 fl (7.4-10.4); Monocytes Percent Auto 3.6 % (2.6-8.5); Neutrophils Absolute Auto 23.4 K/mm3 (1.3-6.7); Platelet Count Result 343 k/mm3 (150-375); Red Blood Count 3.62 M/mm3 (4.6-6.20); Red Cell Distribution Width 13.4 % (11.5-14.5); White Blood Count 26.9 K/mm3 (4.5-10.0)
[2023-08-12 09:07] LABS: Procalcitonin 0.2 ng/mL
--- NOTE | 2023-08-12 10:17 | PM.PNNEP ---
Progress Note: A&P Assessment and Plan (1) Hyponatremia: Code(s): E87.1 - Hypo-osmolality and hyponatremia Status: Acute Assessment and Plan: better if not stable seems acute as normal sodium noted in February of this year risk factors for low sodium: interstitial lung disease pneumonia pre-renal factors thyroid disease history of skin cancer evaluation to date: TSH okay cortisol good serum osmolality 280; urine pending urine lytes non-prerenal suspect etiology due to prerenal issues + pneumonia was on fluid restriction, low dose lasix and gentle IVFs given ongoing poor oral intake, backed off on fluid restriction + diuretics and given more aggressive IVFs if sodium drops again with this intervention, will likely have to resume fluid restriction and diuretic therapy follow trend of sodium level (2) Pneumonia: Qualifiers: Laterality: bilateral Lung location: lower lobe of lung Pneumonia type: due to unspecified organism Qualified Code(s): J18.9 - Pneumonia, unspecified organism Code(s): J18.9 - Pneumonia, unspecified organism Status: Acute Assessment and Plan: based on admission imaging follow culture data on antibiotics (3) Hypertension: Qualifiers: Hypertension type: primary hypertension Qualified Code(s): I10 - Essential (primary) hypertension Code(s): I10 - Essential (primary) hypertension Status: Chronic Assessment and Plan: reasonable control at this time follow trend of hemodynamics (4) Weakness: Code(s): R53.1 - Weakness Status: Acute Assessment and Plan: present since admission Brain CT without any acute issues PT/OT as tolerated Not much else to add -- will continue to follow from a distance. Subjective Date/time seen: 08/12/23 10:17 Interval history: Follow-up for hyponatremia. Sodium remains relatively stable at this time; still with persistent leukocytosis despite current therapy/interventions to date; major complaint remains to be generalized weakness and fatigue; no other issues/events overnight or earlier this morning; awaiting transfer to [facility]. Exam Narrative: General: elderly and frail appearing male in NAD Heart: normal S1 and S2; no rub Lungs: clear to auscultation Abdomen: soft, nontender, nondistended, positive bowel sounds Extremities: no cyanosis or clubbing; trace edema Skin: no rash Objective Data Vital Signs Vital Signs: Vital Signs Temp Pulse Resp BP Pulse Ox 08/12/23 05:10 97.5 F L 80 18 126/59 L 93 08/11/23 20:05 99 F 86 16 120/54 L 93 08/11/23 20:41 99.1 F 08/11/23 17:24 99.1 F 90 20 110/60 95 08/11/23 14:00 96.8 F L 104 H 14 99/55 L 91 Intake/Output Intake/Output: Intake & Output 08/09/23 08/10/23 08/11/23 08/12/23 23:59 23:59 23:59 23:59 Intake Total 1980 1856.0 2376 450 Output Total 095 631 4417 250 Balance 1130 906.0 1126 200 Meds/Results Medications: Active Medications Generic Name Dose Route Start Last Admin Trade Name Freq PRN Reason Stop Dose Admin Acetaminophen 650 mg 08/05/23 14:33 08/12/23 10:26 Acetaminophen 325 Mg Tablet PO 650 mg Q4H PRN Administration Mild Pain (1-3) or Fever Albuterol/Ipratropium 3 ml 08/05/23 19:01 Ipratropium 0.5 Mg/Albuterol Sulfate 2.5 Mg Ampul.Neb 3 Ml INHALATION Q6HRT PRN Shortness Of Breath Or Wheezing Enoxaparin Sodium 40 mg 08/08/23 09:00 08/12/23 10:30 Enoxaparin 40 Mg/0.4 Ml Syringe SUB-Q 40 mg DAILY JOSE Administration Furosemide 20 mg 08/08/23 09:00 08/10/23 08:27 Furosemide 20 Mg Tablet PO 20 mg BID JOSE Administration Sodium Chloride 1,000 mls @ 150 mls/hr 08/07/23 10:35 08/11/23 19:45 Normal Saline Iv IV CONT 150 mls/hr .Q6H40M JOSE Administration Meropenem 1 gm in 100 mls @ 200 mls/hr 08/09/23 07:15 08/12/23 06:17 IVPB Infuse
--- NOTE | 2023-08-12 10:17 | P.PNNP_ITS ---
Progress Note: A&P Assessment and Plan (1) Hyponatremia: Code(s): E87.1 - Hypo-osmolality and hyponatremia Status: Acute Assessment and Plan: * better if not stable * seems acute as normal sodium noted in February of this year * risk factors for low sodium: * interstitial lung disease * pneumonia * pre-renal factors * thyroid disease * history of skin cancer * evaluation to date: * TSH okay * cortisol good * serum osmolality 280; urine pending * urine lytes non-prerenal * suspect etiology due to prerenal issues + pneumonia * was on fluid restriction, low dose lasix and gentle IVFs * given ongoing poor oral intake, backed off on fluid restriction + diuretics and given more aggressive IVFs * if sodium drops again with this intervention, will likely have to resume fluid restriction and diuretic therapy * follow trend of sodium level (2) Pneumonia: Qualifiers: Laterality: bilateral Lung location: lower lobe of lung Pneumonia type: due to unspecified organism Qualified Code(s): J18.9 - Pneumonia, unspecified organism Code(s): J18.9 - Pneumonia, unspecified organism Status: Acute Assessment and Plan: * based on admission imaging * follow culture data * on antibiotics (3) Hypertension: Qualifiers: Hypertension type: primary hypertension Qualified Code(s): I10 - Es sential (primary) hypertension Code(s): I10 - Essential (primary) hypertension Status: Chronic Assessment and Plan: * reasonable control at this time * follow trend of hemodynamics (4) Weakness: Code(s): R53.1 - Weakness Status: Acute Assessment and Plan: * present since admission * Brain CT without any acute issues * PT/OT as tolerated Not much else to add -- will continue to follow from a distance. Subjective Date/time seen: 08/12/23 10:17 Interval history: Follow-up for hyponatremia. Sodium remains relatively stable at this time; still with persistent leukocytosis despite current therapy/interventions to date; major complaint remains to be generalized weakness and fatigue; no other issues/events overnight or earlier this morning; awaiting transfer to [facility]. Exam Narrative: General: elderly and frail appearing male in NAD Heart: normal S1 and S2; no rub Lungs: clear to auscultation Abdomen: soft, nontender, nondistended, positive bowel sounds Extremities: no cyanosis or clubbing; trace edema Skin: no rash Objective Data Vital Signs Vital Signs: Vital Signs Temp Pulse Resp BP Pulse Ox 08/12/23 05:10 97.5 F L 80 18 126/59 L 93 08/11/23 20:05 99 F 86 16 120/54 L 93 08/11/23 20:41 99.1 F 08/11/23 17:24 99.1 F 90 20 110/60 95 08/11/23 14:00 96.8 F L 104 H 14 99/55 L 91 Intake/Output Intake/Output: Intake & Output 08/09/23 08/10/23 08/11/23 08/12/23 23:59 23:59 23:59 23:59 Intake Total 1980 1856.0 2376 450 Output Total 143 203 3825 250 Balance 1130 906.0 1126 200 Meds/Results Medications: Active Medications Generic Name Dose Route Start Last Admin Trade Name Freq PRN Reason Stop Dose Admin Acetaminophen
[2023-08-12] MEDS: ACETAMINOPHEN 325 MG TABLET 650 MG PO ×2 (10:26→14:23)
[2023-08-12] MEDS: MICAFUNGIN SODIUM 100 MG in SODIUM CHLORIDE 0.9% IV 100 ML IVPB (10:27)
[2023-08-12] MEDS: ENOXAPARIN 40 MG/0.4 ML SYRINGE SUB-Q (10:30)
--- NOTE | 2023-08-12 10:43 | PCNFU ---
Nutrition Follow-Up Complete: Inadequate oral intake related to loss of appetite as evidenced by intakes 0-10% Improve Intakes to 50% meals and supplements by next follow up - Not progressing. Continue with same goal Goal: Pt current nutrition is Regular diet, soft & bite size level 6. Ensure Compact BID for additional 220 kcal and 9 g protein. Nutrition recommendation: No new nutrition recommendations. Pt is not eating much. Continue with same nutrition care plan and orders. Agree with orders Last recorded weight is 72.1 kg. Bowel Motility: +4 BMs yesterday 08/11/23 Labs Reviewed: Hgb 11.3, Hct 34.1, Alb 1.9, Na 128, BUN 24, Cre 0.6 Meds Noted: Lasix, Zofran, vancomycin Skin: No pressure injuries. Skin tears to arms Additional Notes: Intakes have been poor. Poor appetite. Family present today. Discharge planning to SNF when ready Monitoring intakes, weights, labs, supplement tolerance, plan of care Follow up in 5 days
--- NOTE | 2023-08-12 11:18 | PCPTNOTE ---
Per RN Pt is still awaiting a bed at [facility], can attempt PT. Attempted therapy session, Patient refused treatment due to increased pain.
--- NOTE | 2023-08-12 12:03 | PC.NURSE ---
RN arrived in room to do round on pt and pt daughter had disconnected pt from IV that had antifungal running.
[2023-08-12 14:00] VITALS: BP 117/54; PULSE 76; RESP 20; TEMP 36.1; O2SAT 97
[2023-08-12 16:42] LABS: Vancomycin Trough 7.3 ug/mL (10.0-20.0)
--- NOTE | 2023-08-12 17:34 | PC.NURSE ---
[facility] transfer RM 830 BE THERE BY 1130PM
--- NOTE | 2023-08-12 17:52 | PM.TDS ---
Transfer Discharge Sum: Prov Provider Date of admission: 08/07/23 16:58 Primary care physician: Jefry Mackenzie DO Admitting clinician: Kentrell Gagnon MD Attending physician on admission: Hardy Gagnon Consults: 08/05/23 14:35 Consult to Physician Routine Comment: Consulting Provider: Clovis Lopez Reason for consultation: hyponatremia Has provider been notified: Yes 08/10/23 Wound/ET Consult Routine Reason for Consult:: sacral pressure sore stage 1 Attending physician on discharge: Cinthya Ortiz Discharging clinician: Cinthya Ortiz Anticipated date of transfer: 08/12/23 Receiving physician/facility: [facility] DS: Admitting Diagnosis Discharge Date August 12, 2023 Admitting Diagnosis Sepsis DS: Discharge Diagnosis Discharge Diagnosis (1) Weakness: Code(s): R53.1 - Weakness Status: Acute (2) Pneumonia: Qualifiers: Laterality: bilateral Lung location: lower lobe of lung Pneumonia type: due to unspecified organism Qualified Code(s): J18.9 - Pneumonia, unspecified organism Code(s): J18.9 - Pneumonia, unspecified organism Status: Acute (3) Sepsis: Qualifiers: Sepsis type: sepsis due to unspecified organism Sepsis acute organ dysfunction status: without acute organ dysfunction Qualified Code(s): A41.9 - Sepsis, unspecified organism Code(s): A41.9 - Sepsis, unspecified organism Status: Acute (4) Hyponatremia: Code(s): E87.1 - Hypo-osmolality and hyponatremia Status: Acute (5) Hypoalbuminemia: Code(s): E88.09 - Other disorders of plasma-protein metabolism, not elsewhere classified Status: Acute Transfer Discharge Sum: Med Medications Active and Home Medications: Home Medications ergocalciferol (vitamin D2) 1,250 mcg (50,000 unit) capsule See Rx Instructions .Route .COMPLEX #3 caps 03/31/23 [Rx Confirmed 08/05/23] lisinopril 5 mg tablet 5 mg PO DAILY #90 tabs 07/29/23 [Rx Confirmed 08/05/23] amoxicillin 500 mg-potassium clavulanate 125 mg tablet (Augmentin) 1 tablet PO Q12H #20 tabs 08/05/23 [Rx Confirmed 08/05/23] azithromycin 250 mg tablet (Zithromax Z-Pierre) See Rx Instructions PO .COMPLEX #6 tabs 08/05/23 [Rx Confirmed 08/05/23] levothyroxine 50 mcg tablet 50 mcg PO DAILY 08/05/23 [History Confirmed 08/05/23] Active Medications Acetaminophen (Acetaminophen 325 Mg Tablet) 650 mg PO Q4H PRN PRN Reason: Mild Pain (1-3) or Fever Last Admin: 08/12/23 14:23 Dose: 650 mg Albuterol/Ipratropium (Ipratropium 0.5 Mg/Albuterol Sulfate 2.5 Mg Ampul.Neb 3 Ml) 3 ml INHALATION Q6HRT PRN PRN Reason: Shortness Of Breath Or Wheezing Enoxaparin Sodium (Enoxaparin 40 Mg/0.4 Ml Syringe) 40 mg SUB-Q DAILY [facility] Last Admin: 08/12/23 10:30 Dose: 40 mg Furosemide (Furosemide 20 Mg Tablet) 20 mg PO BID [facility] Last Admin: 08/10/23 08:27 Dose: 20 mg Meropenem () 1 gm in 100 mls @ 200 mls/hr IVPB Q8HR [facility] Last Admin: 08/12/23 14:22 Dose: 200 mls/hr Micafungin Sodium 100 mg/ (Sodium Chloride) 100 mls @ 100 mls/hr IVPB DAILY [facility] Last Infusion: 08/12/23 11:27 Dose: Infused Vancomycin HCl (Vancomycin 1,250 Mg/Ns 250 Ml) 1,250 mg in 250 mls @ 166.667 mls/hr IVPB Q12H JOSE Albumin Human (Albutein) 100 mls @ 60 mls/hr IVPB Q6HR [facility] Levothyroxine Sodium (Levothyroxine Sodium 50 Mcg Tablet) 50 mcg PO DAILY@0630 [facility] Last Admin: 08/12/23 05:47 Dose: 50 mcg Miconazole Nitrate (Miconazole 2% Antifungal Ointment 56 Gm) 1 applic TOPICAL Q12HR [facility] Last Admin: 08/12/23 10:30 Dose: 1 applic Ondansetron HCl (Ondansetron Inj 4 Mg/2 Ml Vial) 4 mg IV PUSH Q4H PRN PRN Reason: Nausea Last Admin: 08/09/23 20:58 Dose: 4 mg Transfer Discharge Sum: Hosp Hospital Course Hospital course: Alonzo Orta is a pleasant 88 year old male who lives at home with his . has dementia and the patient is typically very active taking care of her. He has a history of herpes
--- NOTE | 2023-08-12 19:53 | PC.NURSE ---
Spoke with No at [facility] who will be the nurse taking pt and she was informed that both pts IVs went bad and that he was prescribed albumin human 25% 25gm/100 ml @ 60 ml/hr IVPB Q6HR. No RN for room 830 was also informed that pt is on his way to the facility via EMS.
--- NOTE | 2023-08-12 20:03 | PC.NURSE ---
Report was called to Alannah at 1550; Pt is going to [facility] RM 830 ADM MD: Tor
[2023-08-15 18:29] LABS: Pneumococcal Antigen Urine NOT DETECTED
[2023-08-15 19:09] LABS: Mycoplasma IgM Antibody Titer 108 U/mL
== END 2023-08-12 19:40 | disposition short-term general hospital (02) | DRG 871 ==
LOC: ANHED 14:37 → ANH3MEDSUR 15:26
PROVIDERS: Internal Medicine Nephrology; Student in an Organized Health Care Education/Training Program; Admitting Provider Internal Medicine; Emergency Provider Physician Assistant; PCP Internal Medicine; Visit Provider General Practice
DX: A41.9 Sepsis, unspecified organism (principal); J18.9 Pneumonia, unspecified organism; E87.1 Hypo-osmolality and hyponatremia; I10 Essential (primary) hypertension; I95.9 Hypotension, unspecified; E03.9 Hypothyroidism, unspecified; E78.5 Hyperlipidemia, unspecified; E55.9 Vitamin D deficiency, unspecified; E88.09 Other disorders of plasma-protein metabolism, not elsewhere classified; Z20.822 Contact with and (suspected) exposure to COVID-19
CPT/HCPCS: 36415; 70450; 71045; 71260; 74177; 80048; 80053; 80069; 80202; 81001; 81003; 82533; 82550; 82570; 83605; 83615; 83735; 83930; 83935; 84100; 84145; 84155; 84156; 84165; 84295; 84300; 84443; 85025; 85027; 86038; 86039; 86140; 86738; 87040; 87086; 87449; 87637; 87641; 87899; 92526; 92610; 92611; 93005; 96361; 96365; 96366; 96367; 96372; 96375; 97110; 97112; 97116; 97162; 97166; 97530; 97535; 99285; A9270; G0378; J0295; J0456; J0696; J1650; J2185; J2248; J2405; J2597; J3370; J7030; J7060; Q9967